=== PATIENT | female | born 1955 | race Caucasian/White ===

== ENCOUNTER 2016-05-09 16:24 | Inpatient (IN) | payer BC, OTHER ==
[~2016-05-09] VITALS: Ht 160 cm; Wt 68.0 kg
[~2016-05-09 16:24] MED LIST: ADVIN50050 INH; ALBINS INH; ALBU1AER9 INH; CHN5 PO; CLON1TAB3 PO; DIPH-437 PO; OXYC5TAB PO; PRED10TA PO; TIOTCAP INH
[2016-05-09] MEDS ORDERED: METHYLPREDNISOLONE 125 MG VIAL IV STA (16:53)
[2016-05-09] MEDS ORDERED: LEVAQUIN 750MG / 150ML D5W IV STA (16:53)
[2016-05-09] MEDS ORDERED: ALBUT/IPRATROP 3MG/0.5MG NEB 3 ML VIAL INH ONE (17:00)
--- NOTE | 2016-05-09 17:07 | EMERGENCY ROOM VISIT NOTE ---
History Report prepared by Rocio: Sydnee Toure Under the Supervision of: Dr. Lyndsey Espino M.D. First contact with patient: 16:35 Chief Complaint: RESPIRATORY PROBLEMS Stated Complaint: LACK OF BREATHING Nursing Triage Summary: Was at [facility] for checkup, was told she needs to be admitted. History of COPD, having increased difficulty breathing and SOB. 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 She notes shortness of breath, cough, and difficulty breathing. She typically wears 3L of O2 all the time. She states that when she sits still her O2 saturation is 98% but it drops into the 80s with any sort of exertion. 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. She was told to come to the ED for further evaluation. She rates her discomfort as a 10/10 in severity. She is currently taking 10mg of prednisone. 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 A total of 10 systems reviewed and were otherwise negative. Past Medical & Surgical Medical Problems: (1) COPD (chronic obstructive pulmonary disease) (2) Emphysematous bleb (3) History of tobacco use Family History Cancer Heart disease Social History Smoking Status: Former Smoker Marital Status: Housing Status: lives with significant other Current/Historical Medications Scheduled Albuterol (Proair Hfa), 2 PUFFS INH Q4HR PRN Cholecalciferol (Vitamin D3), Unknown Dose PO DAILY Diltiazem Hcl Ext Rel (Tiazac), 120 MG PO DAILY Escitalopram Oxalate (Lexapro), 20 MG PO DAILY Fluticasone Prop/Salmeterol (Advair Diskus 500/50 Mcg *), 1 PUFF INH BID Ipratropium-Albuterol (Duoneb), 3 ML INH TID Latanoprost (Xalatan 0.005% Oph Isabel), 1 DROPS OPB HS Magnesium Oxide (Mg Supplement (Magnesium), 250 MG PO DAILY Omeprazole (Prilosec), 20 MG PO DAILY Potassium (Potassium), 99 MG PO DAILY Prednisone Tab (Prednisone), 10 MG PO DAILY Sennosides-Docusate Sodium (Stool Softener), 100 MG PO BID Scheduled PRN Furosemide (Lasix), 20 MG PO DAILY PRN for SWELLING/WEIGHT GAIN Lorazepam (Ativan), 0.5-1 MG PO DAILY PRN for Anxiety Allergies Coded Allergies: No Known Allergies (Unverified , 05/09/16) Physical Exam Vital Signs Date Time Temp Pulse Resp B/P Pulse Ox O2 Delivery O2 Flow Rate FiO2 05/09/16 17:48 98 18 100/71 100 Nebulizer 05/09/16 17:10 96 22 98 Room Air 2.0 05/09/16 17:00 101 05/09/16 16:52 98 Nasal Cannula 3.0 05/09/16 16:51 98 Nasal Cannula 3.0 05/09/16 16:30 36.7 107 23 150/72 97 Room Air Physical Exam Vital signs reviewed. General: Well-appearing 60 year old female, in no significant distress. HEENT: No scleral icterus, PERRLA, neck supple. Atraumatic. Cardiovascular: Regular rate and rhythm, no extra sounds. Pulmonary: Minimal air movement bilaterally, shortness of breath with any talking, distant breath sounds bilaterally no crackles or wheeze appreciated. Dry cough, on N/C O2. Abdomen: Soft, nontender, nondistended, positive bowel sounds. Musculoskeletal: Atraumatic, no peripheral edema. Neurologic: Patient awake alert and oriented x 3, full strength in all 4 extremities. Cranial nerves 2 through 12 grossly intact. Skin: Warm, dry, no rash Medical Decision & Procedures ER Provider Diagnostic Interpretation: Radiology results as stated below per my review and radiologist interpretation: CHEST ONE VIEW PORTABLE HISTORY: cough, COPD exacerbation COMPARISON: Chest 05/15/2013. FINDINGS: The lungs are hyperexpanded with apical predominant emphysematous changes. Interstitial thickening at the lung bases is likely due to vascular crowding. This remains unchanged. No new focal lung consolidations. No evidence for pulmonary edema. The heart is normal in size. No pleural effusions. IMPRESSION: Emphysema. No acute process within the chest. Electronically signed by: Larry Handley M.D. 05/09/2016 5:37 PM Laboratory Results Test 05/09/16 17:00 05/09/16 17:20 05/09/16 17:29 Influenza Type A (RT-PCR) Neg for Influ A (NEG) Influenza Type B (RT-PCR) Neg for Influ B (NEG) Neutrophils % (Manual) 83.4 % Lymphocytes % (Manual) 12.2 % Monocytes % (Manual) 3.5 % Eosinophils % (Manual) 0.9 % Neutrophils # (Manual) 9.60 K/uL (1.4-6.5) Total Absolute Neutrophils 9.60 K/uL (1.4-6.5) Lymphocytes # (Manual) 1.40 K/uL (1.2-3.4) Total Absolute Lymphocytes 1.40 K/uL (1.2-3.4) Monocytes # (Manual) 0.40 K/uL (0.11-0.59) Eosinophils # (Manual) 0.10 K/uL (0-0.5) Red Blood Cell Morphology Unremarkable Prothrombin Time 10.4 SECONDS (9.0-12.0) Prothromb Time International Ratio 1.0 (0.9-1.1) Activated Partial Thromboplast Time 26.1 SECONDS (21.0-31.0) Partial Thromboplastin Ratio 1.0 Magnesium Level 2.2 mg/dl (1.8-2.4) Total Bilirubin 0.3 mg/dl (0.2-1) Direct Bilirubin < 0.1 mg/dl (0-0.2) Aspartate Amino Transf (AST/SGOT) 14 U/L (15-37) Alanine Aminotransferase (ALT/SGPT) 28 U/L (12-78) Alkaline Phosphatase 62 U/L (45-117) Total Creatine Kinase 63 U/L (26-192) Creatine Kinase MB 0.8 ng/ml (0.5-3.6) Creatine Kinase MB Ratio 1.3 (0-3.0) Total Protein 7.2 gm/dl (6.4-8.2) Albumin 4.0 gm/dl (3.4-5.0) Bedside Troponin I 0.000 ng/ml (0-0.045) Laboratory results per my review. Medications Administered Medications (Trade) Dose Ordered Sig/Sulema Route Start Time Stop Time Status Last Admin Dose Admin Albuterol/ Ipratropium (Duoneb) 12 ml ONE ONCE INH 05/09/16 17:00 05/09/16 17:01 DC 05/09/16 17:10 12 ML Methylprednisolone Sodium Succinate (Solu-Medrol IV) 125 mg NOW STAT IV 05/09/16 16:53 05/09/16 16:57 DC 05/09/16 17:47 125 MG Levofloxacin (Levaquin / D5W) 750 mg NOW STAT IV 05/09/16 16:53 05/09/16 16:58 DC 05/09/16 17:47 750 MG Oxycodone/ Acetaminophen (Percocet 5-325MG Tab) 1 tab Q4H PRN PO 05/09/16 18:45 05/23/16 18:44 05/09/16 22:29 1 TAB ECG Indication: SOB/dyspnea Rate (beats per minute): 91 Rhythm: normal sinus Findings: nonspecific-ST abn (diffusely), no ectopy ED Course 1645: Past medical records reviewed. The patient was evaluated in room B12A. A complete history and physical examination was performed. 1653: Levofloxacin 750 mg IV, Solu-Medrol 125 mg IV 1700: DuoNeb 12 ml INH 174: I spoke with Dr. Conde. We discussed the patients results and treatment plan. The patient will be evaluated by the [facility] for further management. 175: I reassessed the patient at this time. She is resting comfortably. I discussed the results and treatment plan with the patient. I answered all pertaining questions that she had. She expressed understanding and verbalized agreement. Medical Decision Differential diagnosis: Etiologies such as infections, reactive airway disease, pneumonia, pneumothorax , COPD, CHF, cardiac ischemia, pulmonary embolism, musculoskeletal, gastrointestinal, as well as others were entertained. This pt was evaluated and appeared to be in no distress. Lab work is negative, including flu swab. CXR is negative for acute process. Pt was given solu- medral and gave a duoneb treatment. She was given IV levaqun 750 mg. Pt was d/ w the hospitalist service for further management. Consults Time Called: 1741 Consulting Physician: Dr. Conde Returned Call: [address] Conde. We discussed the patients results and treatment plan. The patient will be evaluated by the [facility] for further management. Impression Primary Impression: COPD exacerbation Scribe Attestation The scribe's documentation has been prepared under my direction and personally reviewed by me in its entirety. I confirm that the note above accurately reflects all work, treatment, procedures, and medical decision making performed by me. Departure Information Dispostion Being Evaluated By Hospitalist Referrals No Doctor, Assigned (PCP) Patient Instructions A Signature Page, My [facility]
[2016-05-09 17:10] VITALS: PULSE 96; O2SAT 98
[2016-05-09] MEDS ORDERED: PRED10TA PO (17:17)
[2016-05-09] MEDS ORDERED: FURO-85 PO (17:18)
[2016-05-09] MEDS ORDERED: PRLSR20 PO (17:19)
[2016-05-09] MEDS ORDERED: IPRASOL4 INH (17:21)
[2016-05-09] MEDS ORDERED: POTA99TA PO (17:22)
[2016-05-09] MEDS ORDERED: LATA0.009 OPB (17:23)
[2016-05-09] MEDS ORDERED: MAGN250T8 PO (17:24)
[2016-05-09] MEDS ORDERED: CHOL1000 PO (17:25)
[2016-05-09] MEDS ORDERED: LORA-741 PO (17:26)
[2016-05-09] MEDS ORDERED: SENNTAB23 PO (17:31)
[2016-05-09] MEDS ORDERED: DILT120C68 PO (17:32)
[2016-05-09] MEDS ORDERED: ESCI1TAB10 PO (17:33)
[2016-05-09 17:37] LABS: MEAN CELL VOLUME 91.8 fL (80-100); MEAN CORPUSCULAR HEMOGLOBIN 29.2 pg (25-34); MEAN CORPUSCULAR HGB CONC 31.8 g/dl (32-36); MEAN PLATELET VOLUME 9.4 fL (7.4-10.4); PLATELET COUNT 298 K/uL (130-400); RED BLOOD COUNT 4.25 M/uL (4.2-5.4); WHITE BLOOD COUNT 11.51 K/uL (4.8-10.8)
--- NOTE | 2016-05-09 17:39 | DIAGNOSTIC IMAGING REPORT ---
CHEST ONE VIEW PORTABLE HISTORY: cough, COPD exacerbation COMPARISON: Chest 05/15/2013. FINDINGS: The lungs are hyperexpanded with apical predominant emphysematous changes. Interstitial thickening at the lung bases is likely due to vascular crowding. This remains unchanged. No new focal lung consolidations. No evidence for pulmonary edema. The heart is normal in size. No pleural effusions. IMPRESSION: Emphysema. No acute process within the chest. Electronically signed by: Larry Handley M.D. 05/09/2016 5:37 PM
[2016-05-09 17:57] LABS: ALT/SGPT 28 U/L (12-78); BLOOD UREA NITROGEN 15 mg/dl (7-18); BUN/CREATININE RATIO 23.8 (10-20); CALCIUM 9.2 mg/dl (8.5-10.1); CARBON DIOXIDE 31 mmol/L (21-32); CHLORIDE 101 mmol/L (98-107); CREATININE 0.64 mg/dl (0.60-1.20); GLUCOSE 104 mg/dl (70-99); MAGNESIUM 2.2 mg/dl (1.8-2.4); POTASSIUM 4.1 mmol/L (3.5-5.1); SODIUM 140 mmol/L (136-145)
[2016-05-09 17:59] LABS: COMPLETE YES; EOSINOPHIL % 0.9 %; LYMPHOCYTE % 12.2 %; NEUTROPHILS % 83.4 %
[2016-05-09 18:02] LABS: ALKALINE PHOSPHATASE 62 U/L (45-117); AST/SGOT 14 U/L (15-37); CKMB/CK RATIO 1.3 (0-3.0)
[2016-05-09] MEDS ORDERED: ACETAMINOPHEN 325 MG TAB PO PRN (18:45)
[2016-05-09] MEDS ORDERED: OXYCODONE/ACETAMINOPHEN 5-325 TAB PO PRN (18:45)
[2016-05-09] MEDS ORDERED: ONDANSETRON INJ 2 MG/ML 2 ML VIAL IV PRN (19:00)
[2016-05-09 19:06] LABS: INFLUENZA A PCR Neg for Influ A (NEG); INFLUENZA B PCR Neg for Influ B (NEG)
[2016-05-09] MEDS: ALBUT/IPRATROP 3MG/0.5MG NEB 3 ML VIAL INH SCH (20:00)
--- NOTE | 2016-05-09 20:07 | History and Physical ---
History & Physical H&P dictated #[id number].
[2016-05-09] MEDS ORDERED: ALBUT/IPRATROP 3MG/0.5MG NEB 3 ML VIAL INH PRN (20:45)
--- NOTE | 2016-05-09 20:56 | HISTORY & PHYSICAL EXAMINATION ---
DATE OF ADMISSION: 05/09/2016 CHIEF COMPLAINT: Shortness of breath. 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 She does have a history of COPD and wears 3 liters of oxygen all the time. She takes chronic prednisone. She declined having fever and chills. No nausea, vomiting or change in appetite. PAST MEDICAL HISTORY: COPD, kidney stones. PAST SURGICAL HISTORY: Tonsillectomy, hysterectomy, colonoscopy, fiberoptic bronchoscopy, lithotripsy. ALLERGIES: SHE LISTS AN INTOLERANCE TO CODEINE. SOCIAL HISTORY: The patient quit smoking in January 2013. She is and lives with her significant other. No alcohol or illicit substances. FAMILY HISTORY: Lung cancer. HOME MEDICATIONS: Include albuterol 2 puffs q. 4 p.r.n., vitamin D daily, diltiazem 120 mg daily, Lexapro 20 mg daily, Lasix 20 mg daily p.r.n. edema, DuoNeb 3 times daily, Xalatan eyedrops 1 drop at bedtime, Ativan 0.5 mg p.r.n., mag oxide p.o. daily, Prilosec 20 mg daily, potassium 99 mg daily, prednisone 10 mg daily, Advair 1 puff b.i.d., docusate sodium 100 mg b.i.d. REVIEW OF SYSTEMS: A 10-system review was performed, all of which were negative except what I put in the HPI. PHYSICAL EXAMINATION: VITAL SIGNS: Temperature 36.7, pulse 107, respiratory rate 18, blood pressure 100/71, pulse ox is 98% on 2-3 liters. GENERAL: The patient is awake, alert, and oriented x3 in mild distress secondary to shortness of breath. HEENT: TMs intact. No inflammation. Extraocular muscles intact. Pupils equal, round react to light and accommodation. Mucous membranes are moist. Throat is clear. NECK: No JVD or lymphadenopathy. LUNGS: Essentially showed decreased breath sounds at the bases, positive expiratory wheezing bilaterally. No rhonchus sounds. No E to A changes. HEART: Regular. Normal S1, S2, without murmurs, rubs or gallops. ABDOMEN: Soft, nontender, nondistended, positive bowel sounds. EXTREMITIES: No clubbing, cyanosis or edema. NEUROLOGIC: Cranial nerves II-XII are grossly intact and nonfocal. SKIN: Warm and dry without rash. PSYCHIATRIC: The patient is pleasant and cooperative. No signs of significant anxiety or depression. LABORATORY DATA: White count 11.51, hemoglobin 12.4, hematocrit 39.0, platelet count 298,000. Sodium 140, potassium 4.1, chloride 101, CO2 31, BUN 15, creatinine 0.64. Magnesium of 2.2, AST of 14, ALT of 28. Troponin of 0.000. Flu A and flu B were both negative. Chest x-ray was read as emphysema, no acute process within the chest. ASSESSMENT: The patient is assessed as chronic obstructive pulmonary disease exacerbation. PLAN: She was treated with initial dose of Solu-Medrol 125 mg IV in the ED and I will follow that with 60 mg IV q. 6 hours. She was also given levofloxacin 750 mg and I will continue that q. 24-hour. We will get pulmonology consult for further recommendations. She was given albuterol and Atrovent nebs, both scheduled and p.r.n. Her home medications are continued. DVT prophylaxis in the form of Lovenox 40 mg subQ and TEDs and SCDs. She was describing some musculoskeletal back pain, which I ordered pain control for that. Continue supplemental oxygen and titrate if needed.
[2016-05-09 21:19] LABS: PROTHROMBIN TIME (PATIENT) 10.4 SECONDS (9.0-12.0)
[2016-05-09] MEDS: LATANOPROST 0.005% OP SOLN 2.5 ML BTL OPB SCH (22:12)
[2016-05-09] MEDS: DOCUSATE SODIUM/SENNA 50/8.6MG TAB PO SCH (22:13)
[2016-05-09] MEDS: METHYLPREDNISOLONE IV 60 MG in SYRINGE 0 ML IV SCH (22:14)
[2016-05-10] VITALS (8 sets, daily range): BP systolic 127–138; BP diastolic 67–79; PULSE 84–118; TEMP 36–36.9; O2SAT 94–99; Ht 160 cm; Wt 68.0 kg
[2016-05-10] MEDS: LORAZEPAM 0.5 MG TAB PO PRN ×2 (00:53→15:39)
[2016-05-10 06:13] LABS: BASO % 0.1 %; BASO ABS # 0.01 K/uL (0-0.2); COMPLETE YES; HEMATOCRIT 37.1 % (37-47); IG% 0.8 %; LYMPH % 8.3 %; LYMPH ABS # 0.94 K/uL (1.2-3.4); MEAN CELL VOLUME 90.9 fL (80-100); MEAN CORPUSCULAR HEMOGLOBIN 29.4 pg (25-34); MEAN CORPUSCULAR HGB CONC 32.3 g/dl (32-36); MEAN PLATELET VOLUME 9.4 fL (7.4-10.4); MONO % 0.7 %; NEUT % 90.1 %; PLATELET COUNT 293 K/uL (130-400); RED BLOOD COUNT 4.08 M/uL (4.2-5.4); WHITE BLOOD COUNT 11.37 K/uL (4.8-10.8)
[2016-05-10] MEDS: METHYLPREDNISOLONE IV 60 MG in SYRINGE 0 ML IV SCH ×4 (06:36→23:10)
[2016-05-10 06:43] LABS: BUN/CREATININE RATIO 20.7 (10-20); CALCIUM 9.1 mg/dl (8.5-10.1); CREATININE 0.75 mg/dl (0.60-1.20); POTASSIUM 3.9 mmol/L (3.5-5.1)
[2016-05-10] MEDS: ALBUT/IPRATROP 3MG/0.5MG NEB 3 ML VIAL INH SCH ×4 (07:30→20:02)
[2016-05-10] MEDS: MAGNESIUM OXIDE 400 MG TAB PO SCH (08:35)
[2016-05-10] MEDS: PANTOprazole SOD 40 MG TAB PO SCH (08:35)
[2016-05-10] MEDS: DILTIAZEM HCL 120 MG EXT REL CAP PO SCH (08:35)
[2016-05-10] MEDS: DOCUSATE SODIUM/SENNA 50/8.6MG TAB PO SCH ×2 (08:35→20:20)
[2016-05-10] MEDS: ESCITALOPRAM OXALATE 20 MG TAB PO SCH (08:36)
[2016-05-10] MEDS: ENOXAPARIN 40 MG/0.4 ML SYR SQ SCH (08:36)
[2016-05-10] MEDS ORDERED: GLUCOSE 40% GEL 15 GM TUBE PO PRN (10:30)
[2016-05-10] MEDS ORDERED: GLUCAGON FOR INJ 1 MG VIAL SQ PRN (10:30)
[2016-05-10] MEDS ORDERED: GLUCOSE 10 TABS/TUBE PO PRN (10:30)
[2016-05-10] MEDS ORDERED: DEXTROSE 50% 50 ML SYR IV PRN (10:30)
--- NOTE | 2016-05-10 12:04 | Hospitalist Progress Note ---
Hospitalist Progress Note Date of Service May 10, 2016. Subjective Pt evaluation today including: conversation w/ patient, physical exam, chart review, lab review, review of studies, review of inpatient medication list Patient reports feeling 40% better this am. I explained that her sugars are likely going to be elevated while on the higher dose of steroids which may require Sub-q insulin coverage. No fever or chills. When she eats she feels bloated and she feels she is not able to take a deep breath. She reports that this occurs at home as well. Additional Comments: A 10 system review was performed and all were negative. Positives were placed in the subjective section. Objective Vital Signs Date Time Temp Pulse Resp B/P Pulse Ox O2 Delivery O2 Flow Rate FiO2 05/10/16 08:25 Nasal Cannula 2.0 05/10/16 08:11 36.0 84 15 127/68 99 Nasal Cannula 2.0 05/10/16 07:30 89 18 94 Nasal Cannula 2.0 05/10/16 04:08 36.9 99 22 138/79 Nasal Cannula 2.0 05/10/16 00:37 36.7 96 20 131/67 96 3.0 05/10/16 00:00 Nasal Cannula 05/09/16 19:52 36.7 118 22 118/62 100 2.0 05/09/16 17:48 98 18 100/71 100 Nebulizer 05/09/16 17:10 96 22 98 Room Air 2.0 05/09/16 17:00 101 05/09/16 16:52 98 Nasal Cannula 3.0 05/09/16 16:51 98 Nasal Cannula 3.0 05/09/16 16:30 36.7 107 23 150/72 97 Room Air Physical Exam Notes: GEN: Awake, alert, and oriented x 3. Not in acute distress HEENT: Tm's intact, no inflammation, EOMI, PERRLA, MMM Neck: Soft, supple Lungs: Better air movement than yesterday but still sounds tight and has + exp wheezes b/l. Heart: REG, nrl S1S2 without murmurs, rubs or gallops Abdomen: Soft, NT, ND, + BS EXT: No C/C/E NEURO: CN's II-XII grossly intact, non-focal Skin: warm, dry, no rashes PSYCH: pleasant, cooperative, no signs of significant anxiety or depression. Laboratory Results Last 24 Hours Test 05/09/16 17:00 05/09/16 17:20 05/09/16 17:29 05/10/16 05:37 Influenza Type A (RT-PCR) Neg for Influ A Influenza Type B (RT-PCR) Neg for Influ B White Blood Count 11.51 K/uL 11.37 K/uL Red Blood Count 4.25 M/uL 4.08 M/uL Hemoglobin 12.4 g/dL 12.0 g/dL Hematocrit 39.0 % 37.1 % Mean Corpuscular Volume 91.8 fL 90.9 fL Mean Corpuscular Hemoglobin 29.2 pg 29.4 pg Mean Corpuscular Hemoglobin Concent 31.8 g/dl 32.3 g/dl Platelet Count 298 K/uL 293 K/uL Mean Platelet Volume 9.4 fL 9.4 fL RDW Standard Deviation 48.0 fL 47.6 fL RDW Coefficient of Variation 14.2 % 14.2 % Neutrophils % (Manual) 83.4 % Lymphocytes % (Manual) 12.2 % Monocytes % (Manual) 3.5 % Eosinophils % (Manual) 0.9 % Neutrophils # (Manual) 9.60 K/uL Total Absolute Neutrophils 9.60 K/uL Lymphocytes # (Manual) 1.40 K/uL Total Absolute Lymphocytes 1.40 K/uL Monocytes # (Manual) 0.40 K/uL Eosinophils # (Manual) 0.10 K/uL Red Blood Cell Morphology Unremarkable Prothrombin Time 10.4 SECONDS Prothromb Time International Ratio 1.0 Activated Partial Thromboplast Time 26.1 SECONDS Partial Thromboplastin Ratio 1.0 Sodium Level 140 mmol/L 138 mmol/L Potassium Level 4.1 mmol/L 3.9 mmol/L Chloride Level 101 mmol/L 100 mmol/L Carbon Dioxide Level 31 mmol/L 26 mmol/L Anion Gap 8.0 mmol/L 12.0 mmol/L Blood Urea Nitrogen 15 mg/dl 16 mg/dl Creatinine 0.64 mg/dl 0.75 mg/dl Est Creatinine Clear Calc Drug Dose 84.4 ml/min 72.0 ml/min Estimated GFR () 110.8 99.0 Estimated GFR (Non- 95.6 85.4 BUN/Creatinine Ratio 23.8 20.7 Random Glucose 104 mg/dl 195 mg/dl Calcium Level 9.2 mg/dl 9.1 mg/dl Magnesium Level 2.2 mg/dl Total Bilirubin 0.3 mg/dl Direct Bilirubin < 0.1 mg/dl Aspartate Amino Transf (AST/SGOT) 14 U/L Alanine Aminotransferase (ALT/SGPT) 28 U/L Alkaline Phosphatase 62 U/L Total Creatine Kinase 63 U/L Creatine Kinase MB 0.8 ng/ml Creatine Kinase MB Ratio 1.3 Total Protein 7.2 gm/dl Albumin 4.0 gm/dl Bedside Troponin I 0.000 ng/ml Neutrophils (%) (Auto) 90.1 % Lymphocytes (%) (Auto) 8.3 % Monocytes (%) (Auto) 0.7 % Eosinophils (%) (Auto) 0.0 % Basophils (%) (Auto) 0.1 % Neutrophils # (Auto) 10.25 K/uL Lymphocytes # (Auto) 0.94 K/uL Monocytes # (Auto) 0.08 K/uL Eosinophils # (Auto) 0.00 K/uL Basophils # (Auto) 0.01 K/uL Immature Granulocyte % (Auto) 0.8 % Immature Granulocyte # (Auto) 0.09 K/uL Assessment and Plan 1) COPD exacerbation - improving, continue IV steroid, IV antibiotic, nebs. Pulmonary consulted. 2) Steroid induced hyperglycemia - checking sugars, follow sliding scale insulin 3) GERD - on Prilosec at home Protonix in house. 4) Anxiety - takes lexapro daily 5) Back pain - musculoskeletal - improved, pain control ordered. DVT prophylaxis sub-q lovenox, TEDs, SCDs. Continued [facility] stay due to: multiple IV medications needed Discharge planning: home
[2016-05-10] MEDS: INSULIN ASPART 100 UNITS/ML 3 ML PEN SC SCH ×3 (12:16→20:24)
--- NOTE | 2016-05-10 13:10 | PULMONARY CONSULTATION ---
DATE OF CONSULTATION: 05/10/2016 TIME: 10:40 a.m. HISTORY OF PRESENT ILLNESS: The patient was seen in room 408. She is a 60-year-old female with a longstanding history of severe emphysema and COPD. She has had breathing problems for longer than 20 years. She has had severely abnormal pulmonary function test. She is seen in the pulmonary office in [place]. Just yesterday she was there for a routine appointment but was in respiratory distress. She has been having severe problem since March. Her shortness of breath has been so severe that she is unable to eat unless she is in the standing position. Likewise oftentimes at night, she will kneel on the floor adjacent to her bed and lean over the bed and sleep that way for a few hours. She does this to gain mechanical advantage for better breathing. She has very little cough, although she started to cough a little bit since she has been getting more breathing treatments since admission. She has not expectorated any sputum. She is winded with any exertion at all. She cannot do any housework. She has not been up stairs in her home for a few years. She has been evaluated at [facility]. They were assessing her for possible lung reduction surgery. She was enrolled in the [employer] trial. She was categorized into the control group. There has been talk of either doing a lung reduction surgery or perhaps doing endobronchial coiling procedures or other procedures to have a similar effect. These products are not yet approved however by FDA for this. Since about , she has been doing poorly. She was admitted yesterday after having been in the office and seen Heydi James PA-C. She is feeling modestly better today. She is definitely breathing easier, she states. She will describe having severe posterior chest pain. This seems to be when she is having the most difficulty breathing. The patient takes nebulizer treatments in the form of DuoNeb 3 or 4 times per day. She is on long-term prednisone therapy, currently at 10 mg daily. She is on chronic oxygen therapy, believed to be on 3 liters. She is on Advair. In the past, she had been on Spiriva. She cannot remember why she stopped it but she thinks she just became frustrated at taking too many medicines. The patient has had bronchoscopy done by Dr. Rosa back in 2007 and 2012. Apparently, she had to be admitted for a couple days after the scope in 2012. In 2013, she had a lung abscess that was treated with catheter drainage and antibiotic therapy. PAST SURGICAL HISTORY: 1. Tonsillectomy. 2. Hysterectomy. 3. Tubal ligation. 4. Appendectomy. 5. Lithotripsy. PAST MEDICAL HISTORY: 1. Kidney stones. 2. Depression. 3. Skin cancer. 4. Tachycardia. 5. Lung problems as noted above. SOCIAL HISTORY: The patient smoked approximately 2 packs per day for 40 years. She quit in 2012. ETOH is none. ALLERGIES: LISTED ALLERGY TO CODEINE, SHE STATES SHE HAD SOME HALLUCINATIONS but she has had no problems with occasional use of cough syrup with codeine. REVIEW OF SYSTEMS: GENERAL: The patient's energy level is low. She is markedly limited in what she can do. She fatigues easily. NEUROLOGIC: No syncope or near syncope. OPHTHALMIC: She does have glaucoma and takes medicines for this. No acute ocular complaints. ENT: The patient snores loudly. She has some degree of nasal congestion. She has had chronic insomnia, for which she takes Tylenol PM. She has been doing this for years. She denies observed apneas. She denies difficulty sleeping when she falls asleep and she states she falls asleep readily with the p.m. medicine. She has chronic nasal dryness. CARDIAC: Chest pains posteriorly as noted above. History of tachycardia but no palpitations at present. She does sleep with 6 pillows underneath her to assist with her breathing. PULMONARY: As noted above. GASTROINTESTINAL: She has a history of reflux, for which she takes omeprazole b.i.d. She has chronic constipation. GENITOURINARY: Occasionally she has difficulty with urination. It seems to be better recently, she states. DERMATOLOGIC: No rashes. ENDOCRINE: No lymphadenopathy. MUSCULOSKELETAL: Only as noted above. FAMILY HISTORY: Strong family history of lung cancer. The patient's paternal grandfather, father, 3 paternal uncles, and a sister have all of lung cancer. Mother at age 84 from a perforated viscus. PHYSICAL EXAMINATION: GENERAL: The patient is a pleasant 60-year-old female who was cooperative, alert and oriented. She was able to lie back apparently much more than she had been previously. She did not appear in distress at rest. VITAL SIGNS: Temperature is 36 degrees. She has been afebrile since presentation. HEENT: Pupils were reactive to light. Nares were clear. Mouth exam showed a Mallampati grade 3 pharynx. There was no evidence of oral candidiasis. NECK: Palpation of the neck reveals no lymph nodes. CHEST: Inspection of the chest reveals an increased AP diameter. HEART: Heart rate currently is 84 per minute. The rhythm was regular. Blood pressure 127/68. LUNGS: Respiratory rate is 22 per minute. There is marked prolongation to the expiratory phase of respiration. No active wheezing was heard. She does have some degree of mild accessory muscle use, mainly in the strap muscle area. Saturations were 99% on 2 liter nasal cannula. ABDOMEN: Mildly obese. It was soft and nontender. Good bowel sounds were heard. EXTREMITIES: Showed no cyanosis, clubbing or edema. The patient on her left hand has nailbeds which are pulling apart from the nail itself and this occurs in fingers 1, 2, 3 and 4. This has been for a few years. The patient's chest x-ray showed hyperinflation with probable emphysematous changes in the upper lung fox bilaterally. LABORATORY DATA: CBC shows a white count of 11.37. Hemoglobin is 12. Platelets 293,000. Coags were normal. The electrolytes show sodium 138, potassium 3.9, chloride 100, bicarb 26. BUN 16 with a creatinine of 0.75. Blood sugar today was 195. Yesterday, it had been 104. Presumably this is related to steroids. Troponin was negative. Liver functions were normal. Flu test was negative. EKG showed an underlying normal sinus rhythm. Rate was 91. There are mild nonspecific ST and T-wave changes. IMPRESSION: 1. Respiratory failure -- with hypoxia. 2. Chronic obstructive pulmonary disease with exacerbation. 3. Emphysema with blebs in the upper lung fox. 4. Possible obstructive sleep apnea. 5. Gastroesophageal reflux disease. COMMENTS AND RECOMMENDATIONS: The patient obviously has very severe emphysema. Clinically, she is improved by history. I suspect the improvement is due to the IV steroids. Unfortunately, we are increasing her blood sugars. We will need to follow the sugars carefully. She is on levofloxacin. The Solu-Medrol is currently 60 mg IV q. 6 hours. She is receiving nebulizer treatments with DuoNeb q.i.d. and p.r.n. If she has tachyarrhythmias, would consider changing to Xopenex. She is taking diltiazem because of a history of tachycardia. I think it would be beneficial to give her a trial again of Spiriva. I would like to obtain a blood gas to assess not only her oxygenation but also her degree of carbon dioxide levels. The patient would be difficult to do a sleep study in the sleep lab because of her sleeping situation with her breathing. Her history, however, of chronic insomnia with excessively loud snoring would certainly suggest that. It is unknown if she would be tolerant of CPAP or BiPAP if indeed she did have severe sleep apnea. We will discuss this further with her as time goes on. Thank you very much for asking me to assist in her care.
[2016-05-10] MEDS: MoRPHine SULFATE 4 MG/ML 1 ML CARP\\VIAL IV PRN (15:40)
[2016-05-10] MEDS ORDERED: LEVOFLOXACIN / D5W 750 MG in PREMIXED IN D5W 150 ML IV SCH (17:00)
[2016-05-10] MEDS: LATANOPROST 0.005% OP SOLN 2.5 ML BTL OPB SCH (20:20)
[2016-05-11] VITALS (8 sets, daily range): BP systolic 125–136; BP diastolic 66–70; PULSE 97–111; TEMP 36.5–36.8; O2SAT 95–98
[2016-05-11] MEDS: METHYLPREDNISOLONE IV 60 MG in SYRINGE 0 ML IV SCH ×4 (04:58→22:26)
[2016-05-11] MEDS: ALBUT/IPRATROP 3MG/0.5MG NEB 3 ML VIAL INH SCH ×4 (06:59→19:03)
[2016-05-11] MEDS: TIOTROPIUM BROMIDE 5 PUFF/90 MCG INH INH SCH (08:15)
[2016-05-11] MEDS: ESCITALOPRAM OXALATE 20 MG TAB PO SCH (08:16)
[2016-05-11] MEDS: MAGNESIUM OXIDE 400 MG TAB PO SCH (08:16)
[2016-05-11] MEDS: PANTOprazole SOD 40 MG TAB PO SCH (08:17)
[2016-05-11] MEDS: DOCUSATE SODIUM/SENNA 50/8.6MG TAB PO SCH ×2 (08:17→20:31)
[2016-05-11] MEDS: DILTIAZEM HCL 120 MG EXT REL CAP PO SCH (08:18)
[2016-05-11] MEDS: ENOXAPARIN 40 MG/0.4 ML SYR SQ SCH (08:18)
[2016-05-11] MEDS: INSULIN ASPART 100 UNITS/ML 3 ML PEN SC SCH ×4 (08:22→20:37)
[2016-05-11 08:38] LABS: ARTERIAL BLD GAS O2 SATURATION 96.7 % (90-95); ARTERIAL BLOOD GAS HCO3 28 mmol/L (19-24); ARTERIAL BLOOD GAS PO2 86 mm/Hg (80-95); ARTERIAL BLOOD GAS pH 7.45 (7.35-7.45)
[2016-05-11 08:39] LABS: ALLEN TEST Positive (POS)
--- NOTE | 2016-05-11 11:52 | Hospitalist Progress Note ---
Hospitalist Progress Note Date of Service May 11, 2016. Subjective Pt evaluation today including: conversation w/ patient, physical exam, chart review, lab review, review of studies, conversation w/ software developer consultant (Pulm), review of inpatient medication list PO Intake: mateo po Pt feeling a bit better but still quite dyspneic just with conversation an even more so with ambulation to the bathroom. Has pains chronically that are worse in bilateral rib cage from accessory muscle use Constitutional: No fever Respiratory: + dyspnea on exertion, + shortness of breath, + wheezing Cardiovascular: + chest pain (rib cage as per hpi) Abdomen: No pain Skin: No rash All Other Systems: Reviewed and Negative Objective Vital Signs Date Time Temp Pulse Resp B/P Pulse Ox O2 Delivery O2 Flow Rate FiO2 05/11/16 08:50 Nasal Cannula 2.0 05/11/16 08:29 36.5 105 18 128/68 95 Room Air 05/11/16 06:59 98 20 98 Nasal Cannula 3.0 05/11/16 00:42 36.8 111 18 136/66 97 2.0 05/11/16 00:00 Nasal Cannula 05/10/16 20:02 100 22 98 Nasal Cannula 2.0 05/10/16 16:00 Nasal Cannula 05/10/16 15:51 118 30 95 Nasal Cannula 2.0 05/10/16 15:15 36.9 108 17 137/70 98 2.0 Physical Exam General Appearance: WD/WN, + mild distress (dyspneic, tachypneic at rest with conversation) Eyes: normal inspection, sclerae normal ENT: pharynx normal (no thrush) Neck: trachea midline Respiratory/Chest: + respiratory distress (mild), + decreased breath sounds ( diffuse), + accessory muscle use (some at times), + wheezing (diffuse) Cardiovascular: no edema, no gallop, no murmur, + tachycardia (mild, regular rhythm) Abdomen: normal bowel sounds, non tender, soft Extremities: non-tender, normal inspection, no calf tenderness, + swelling ( trace edema legs) Neurologic/Psychiatric: alert, normal mood/affect Skin: normal color, warm/dry, no rash Laboratory Results Last 24 Hours Test 05/10/16 12:15 05/10/16 16:20 05/10/16 20:15 05/11/16 08:14 Bedside Glucose 199 mg/dl 172 mg/dl 158 mg/dl 200 mg/dl Test 05/11/16 08:23 Arterial Blood pH 7.45 Arterial Blood Partial Pressure CO2 42 mmHg Arterial Blood Partial Pressure O2 86 mm/Hg Arterial Blood HCO3 28 mmol/L Arterial Blood Oxygen Saturation 96.7 % Arterial Blood Base Excess 4.0 mEq/L Arterial Blood Gas Delivery 2 Liters Ricardo Test Positive Assessment and Plan Pt is a 60 yo female with a h/o severe COPD, chronic respiratory failure on home O2, chronic back pain, HTN, tachycardia, LE edema, anxiety, GERD, here with COPD exacerbation. 1) COPD exacerbation - improving, continue IV steroid, IV Levaquin but change to po today, afebrile, nebs. Pulmonary consulted. -is being considered for clinical trial at [facility] for lung surgery or procedure 2) Steroid induced hyperglycemia - checking sugars, follow sliding scale insulin 3) GERD - on Prilosec at home Protonix in house. 4) Anxiety - takes lexapro daily 5) Back pain - musculoskeletal - improved, pain control ordered. DVT prophylaxis sub-q lovenox, TEDs, SCDs.
--- NOTE | 2016-05-11 15:36 | Pulmonology Progress Note ---
Pulmonary Progress Note Date of Service May 11, 2016. Attending Cable Subjective Feeling somewhat improved today now comfortable at rest yet remains markedly dyspneic with minimal exertion. Back pain is controlled. No chest pain. Was unable to cough prior but now able to support cough with sputum production. Appetite is diminished without n/v/d or abdominal pain. No fevers or chills. Objective 60-yo female hospital day # 3 admitted with exacerbation severe end-stage COPD. PMHx includes: 2-3 LPM O2 and steroid (10mg prednisone) dependent severe COPD ( FEV1: 25%), CAD, GERD. Former tobacco use (80+ pack year) with continued second hand exposure. Patient admitted 03/09/17 through the [facility] ER with 1-month history of progressive dyspnea and intermittent hypoxia. In the ER WBC: 11.51. Hgb/Hct: 12.4/39, plts 298. AB.45/42/86/28. CXR without infiltrate and consistent with severe emphysema. Influenza: negative. She was treated with levofloxacin, IV methylprednisone ([id number]), Q6-hour Duo-Nebs and Spiriva with improvement. Today: - O2: 95-98% on 2-3LPM - HD stable, afebrile, intermittent tachycardia Physical Exam: Constitutional: Well developed female lying in hospital bed. No acute distress Head: + facial symmetry, nasal cannula in place Mouth: moist mucous membranes. no erythema or plaques Respiratory: Very distant breath sounds throughout. End-expiratory wheeze auscultated anterior right-mid lung field. NO rhonchi or rales. Intermittent dry cough CV: Diminished S1, S2. No murmur appreciated. Rapid rate. Warm and perfused peripherally MSK/Extremities: Moving and developed symmetrically without significant peripheral edema. Neurologic: A&O. Good data recall. Appropriate affect. Assessment & Plan 66-yo female with severe end-stage COPD/Emphysema presents to the hospital with acute exacerbation. Overall she is improved but remains dyspneic with minimal exertion. Baseline she is very limited and we spent time today discussing her end-stage disease. She is at and actually past the point in her lung function where lung reduction surgery, valve placement and even lung transplant have been discussed through [facility] and she was encouraged to very seriously consider if she wants to pursue these options vs no-treatment such that that further discussion regarding her lung disease, expectations, pulmonary rehab, and symptom management can be addressed appropriately (as an outpatient). 1. Continue IV steroid 60Q6 through tomorrow and will continue to address ability to wean 2. Continue full course levofloxacin, Duo-nebs and Spiriva -tachycardia improving and compensational but consider adjusting levalbuterol-ipratropium if continues tomorrow 3. No significant changes in regimen at this time, she is improving slowly but not yet ready for de-escalation today. Will re-evaluate tomorrow with further recommendations. Data Medications: Current Inpatient Medications Medications (Trade) Dose Ordered Sig/Sulema Route Start Time Stop Time Status Last Admin Dose Admin Methylprednisolone Sodium Succinate/ Syringe (Solu-Medrol IV/ Syringe) 0.96 ml @ 1.5 mls/min Q6H IV 05/09/16 23:00 06/08/16 22:59 05/11/16 12:22 1.5 MLS/MIN Albuterol/ Ipratropium (Duoneb) 3 ml QIDR INH 05/09/16 20:00 06/08/16 19:59 05/11/16 15:17 3 ML Acetaminophen (Tylenol Tab) 650 mg Q6H PRN PO 05/09/16 18:45 06/08/16 18:44 Oxycodone/ Acetaminophen (Percocet 5-325MG Tab) 1 tab Q4H PRN PO 05/09/16 18:45 05/23/16 18:44 05/09/16 22:29 1 TAB Morphine Sulfate (MoRPHine SULFATE INJ) 3 mg Q3H PRN IV 05/09/16 18:45 05/23/16 18:44 05/10/16 15:40 3 MG Diltiazem HCl (TIAzac CAP) 120 mg DAILY PO 05/10/16 08:00 06/09/16 08:59 05/11/16 08:18 120 MG Escitalopram Oxalate (Lexapro Tab) 20 mg DAILY PO 05/10/16 08:00 06/09/16 08:59 05/11/16 08:16 20 MG Latanoprost (Xalatan Oph Soln) 1 drops HS OPB 05/09/16 21:00 06/08/16 20:59 05/10/16 20:20 1 DROPS Senna/Docusate Sodium (Senokot S Tab) 1 tab BID PO 05/09/16 20:00 06/08/16 19:59 05/11/16 08:17 1 TAB Magnesium Oxide (Mag-Ox Tab) 400 mg DAILY PO 05/10/16 08:00 06/09/16 07:59 05/11/16 08:16 400 MG Pantoprazole Sodium (Protonix Tab) 40 mg QAM PO 05/10/16 08:00 06/09/16 07:59 05/11/16 08:17 40 MG Enoxaparin Sodium (Lovenox Inj) 40 mg QAM SQ 05/10/16 08:00 06/09/16 07:59 05/11/16 08:18 40 MG Lorazepam (Ativan Tab) 0.5 mg Q6H PRN PO 05/09/16 19:00 06/08/16 18:59 05/10/16 15:39 0.5 MG Ondansetron HCl (Zofran Inj) 4 mg Q6H PRN IV 05/09/16 19:00 06/08/16 18:59 Albuterol/ Ipratropium (Duoneb) 3 ml Q2H PRN INH 05/09/16 20:45 06/08/16 20:44 Insulin Aspart (novoLOG ASPART) SLIDING SCALE G... ACHS SC 05/10/16 11:00 06/09/16 10:59 05/11/16 12:24 2 UNITS Glucose (Glucose 40% Gel) 15-30 GRAMS 15 GRAMS... UD PRN PO 05/10/16 10:30 06/09/16 10:29 Glucose (Glucose Chew Tab) 4-8 Tablets 4 Tabl... UD PRN PO 05/10/16 10:30 06/09/16 10:29 Dextrose (Dextrose 50% 50ML Syringe) 25-50ML OF 50% DW IV FOR... UD PRN IV 05/10/16 10:30 06/09/16 10:29 Glucagon (Glucagon Inj) 1 mg UD PRN SQ 05/10/16 10:30 06/09/16 10:29 Tiotropium Lydia (Spiriva Handihaler Inhaler) 1 puff QAM INH 05/11/16 08:00 06/10/16 07:59 05/11/16 08:15 1 PUFF Furosemide (Lasix tab) 20 mg QAM PO 05/12/16 08:00 06/11/16 07:59 Levofloxacin (Levaquin Tab) 750 mg DAILY@1600 PO 05/11/16 16:00 05/16/16 15:59 Vital Signs: Date Time Temp Pulse Resp B/P Pulse Ox O2 Delivery O2 Flow Rate FiO2 05/11/16 11:08 97 18 98 Nasal Cannula 3.0 05/11/16 08:50 Nasal Cannula 2.0 05/11/16 08:29 36.5 105 18 128/68 95 Room Air 05/11/16 06:59 98 20 98 Nasal Cannula 3.0 05/11/16 00:42 36.8 111 18 136/66 97 2.0 05/11/16 00:00 Nasal Cannula 05/10/16 20:02 100 22 98 Nasal Cannula 2.0 05/10/16 16:00 Nasal Cannula 05/10/16 15:51 118 30 95 Nasal Cannula 2.0 Laboratory Results: Last 24 Hours Test 05/10/16 16:20 05/10/16 20:15 05/11/16 08:14 05/11/16 08:23 Bedside Glucose 172 mg/dl 158 mg/dl 200 mg/dl Arterial Blood pH 7.45 Arterial Blood Partial Pressure CO2 42 mmHg Arterial Blood Partial Pressure O2 86 mm/Hg Arterial Blood HCO3 28 mmol/L Arterial Blood Oxygen Saturation 96.7 % Arterial Blood Base Excess 4.0 mEq/L Arterial Blood Gas Delivery 2 Liters Ricardo Test Positive Test 05/11/16 12:16 Bedside Glucose 215 mg/dl
[2016-05-11] MEDS: LEVOFLOXACIN 750 MG TAB PO SCH (17:39)
[2016-05-11] MEDS: MoRPHine SULFATE 4 MG/ML 1 ML CARP\\VIAL IV PRN (20:30)
[2016-05-11] MEDS: LATANOPROST 0.005% OP SOLN 2.5 ML BTL OPB SCH (20:39)
[2016-05-11] MEDS: LORAZEPAM 0.5 MG TAB PO PRN (22:26)
[2016-05-12] VITALS (10 sets, daily range): BP systolic 130–143; BP diastolic 70–79; PULSE 86–99; TEMP 36.6–36.8; O2SAT 95–99
[2016-05-12] MEDS: METHYLPREDNISOLONE IV 60 MG in SYRINGE 0 ML IV SCH ×2 (04:44→11:46)
[2016-05-12] MEDS: LORAZEPAM 0.5 MG TAB PO PRN ×4 (05:00→23:43)
[2016-05-12] MEDS: ALBUT/IPRATROP 3MG/0.5MG NEB 3 ML VIAL INH SCH ×5 (05:07→19:39)
[2016-05-12 06:10] LABS: COMPLETE YES; HEMATOCRIT 36.3 % (37-47); IG% 0.7 %; LYMPH % 5.4 %; LYMPH ABS # 1.03 K/uL (1.2-3.4); MEAN CELL VOLUME 91.7 fL (80-100); MEAN CORPUSCULAR HEMOGLOBIN 29.5 pg (25-34); MEAN CORPUSCULAR HGB CONC 32.2 g/dl (32-36); MEAN PLATELET VOLUME 9.6 fL (7.4-10.4); MONO % 3.7 %; NEUT % 90.2 %; PLATELET COUNT 317 K/uL (130-400); RED BLOOD COUNT 3.96 M/uL (4.2-5.4); WHITE BLOOD COUNT 19.09 K/uL (4.8-10.8)
[2016-05-12 06:42] LABS: ALT/SGPT 28 U/L (12-78); AST/SGOT 11 U/L (15-37); BUN/CREATININE RATIO 30.3 (10-20); CALCIUM 8.8 mg/dl (8.5-10.1); CARBON DIOXIDE 27 mmol/L (21-32); CHLORIDE 98 mmol/L (98-107); CREATININE 0.81 mg/dl (0.60-1.20); GLUCOSE 159 mg/dl (70-99); MAGNESIUM 2.9 mg/dl (1.8-2.4); POTASSIUM 4.1 mmol/L (3.5-5.1); SODIUM 136 mmol/L (136-145)
[2016-05-12 06:45] LABS: ALKALINE PHOSPHATASE 55 U/L (45-117)
[2016-05-12 06:58] LABS: BLOOD UREA NITROGEN 25 mg/dl (7-18)
[2016-05-12] MEDS: MoRPHine SULFATE 4 MG/ML 1 ML CARP\\VIAL IV PRN ×2 (08:19→17:07)
[2016-05-12] MEDS: ESCITALOPRAM OXALATE 20 MG TAB PO SCH (08:23)
[2016-05-12] MEDS: DOCUSATE SODIUM/SENNA 50/8.6MG TAB PO SCH ×2 (08:23→21:12)
[2016-05-12] MEDS: FUROSEMIDE 20 MG TAB PO SCH (08:23)
[2016-05-12] MEDS: PANTOprazole SOD 40 MG TAB PO SCH ×2 (08:23→21:12)
[2016-05-12] MEDS: DILTIAZEM HCL 120 MG EXT REL CAP PO SCH (08:23)
[2016-05-12] MEDS: TIOTROPIUM BROMIDE 5 PUFF/90 MCG INH INH SCH (08:24)
[2016-05-12] MEDS: MAGNESIUM OXIDE 400 MG TAB PO SCH (08:24)
[2016-05-12] MEDS: ENOXAPARIN 40 MG/0.4 ML SYR SQ SCH (08:25)
--- NOTE | 2016-05-12 08:25 | DIAGNOSTIC IMAGING REPORT ---
TWO VIEW CHEST CLINICAL HISTORY: COPD. Dyspnea. FINDINGS: PA and lateral chest radiographs are compared to study dated 05/09/2016 and correlated with chest CT dated 07/10/2014. The cardiomediastinal silhouette is unremarkable. Advanced emphysema and chronic interstitial thickening is similar to previous. There is no airspace consolidation or pleural effusion There is no pneumothorax. The skeletal structures are osteopenic. The bony thorax appears intact. Calcific tendinopathy is noted in the right shoulder. IMPRESSION: Advanced emphysema with no acute cardiopulmonary abnormality. Electronically signed by: Oh Garrett M.D. 05/12/2016 8:23 AM Dictated Date/Time: 05/12/2016 8:22 AM
[2016-05-12] MEDS: INSULIN ASPART 100 UNITS/ML 3 ML PEN SC SCH ×4 (08:30→21:17)
--- NOTE | 2016-05-12 14:19 | PULMONARY PROGRESS NOTE ---
DATE: 05/12/2016 Time is 1:45 p.m. SUBJECTIVE: The patient describes having 2 episodes of acute shortness of breath that scared her a lot. One episode occurred last evening. She had gone to the bathroom with nursing assistance. When she got back from the bathroom, which is only a couple of steps, she was really tight and short of breath. She was getting panicky. Ultimately, she was relieved with a nebulizer treatment. This morning once again similar episode but not quite as bad occurred. On this occasion, however, she was not going to the bathroom at that point in time. She seems to be not as good as when I saw her 2 days ago. She complains of feeling bloated. She is moving her bowels. She states she is just not very hungry from feeling bloated. OBJECTIVE: GENERAL: The patient looked anxious and she looked somewhat short of breath. She is afebrile and has been afebrile. EARS, NOSE, THROAT: Unremarkable. VITAL SIGNS: Heart rate is 88 per minute. The rhythm was regular. Blood pressure 143/73. LUNGS: Lung fox again are severely diminished in terms of their intensity. There was prolongation to the expiratory phase of respiration. ABDOMEN: Fairly soft. Bowel sounds were heard. There was no tenderness. EXTREMITIES: Showed no edema. LABORATORY DATA: Blood gas done yesterday on 2-liter nasal cannula shows a pH of 7.45 with a pCO2 of 42 and a pO2 of 86. Electrolytes show sodium of 136, potassium 4.1, chloride 98, bicarb 27. BUN was 25 with a creatinine of 0.81. Blood sugar was 233 at 11:35 a.m. The patient did express concern over whether she was getting the right medicines to bring her blood sugars down. I tried to reassure her that this is a common situation when people are on high dose steroids and that it is dealt with regularly. CBC shows a white count of 19.09. This reflects a significant increase from 2 days ago when she was 11.37. This may be due to steroids. Hemoglobin is 11.7. Platelets are 317,000. IMPRESSIONS: 1. Acute respiratory failure with hypoxia. 2. Chronic obstructive pulmonary disease exacerbation. 3. Emphysema with blebs. 4. Gastroesophageal reflux disease. 5. Possible obstructive sleep apnea. COMMENTS AND RECOMMENDATIONS: The patient does not seem as good as she did 2 days ago. She did have a chest x-ray yesterday that again shows obstructive lung disease with bullous changes in the upper lung fox. I explained to her that we probably would want to decrease the steroids a little bit because of the blood sugars. She is on Levaquin as well as Spiriva, pantoprazole, enoxaparin and DuoNeb. Her heart rate is slower than it had been a couple of days ago and I think that may reflect some improvement. I would continue otherwise the same for now.
[2016-05-12] MEDS: LEVOFLOXACIN 750 MG TAB PO SCH (17:00)
[2016-05-12] MEDS: METHYLPREDNISOLONE IV 40 MG in SYRINGE 0 ML IV SCH ×2 (17:00→22:22)
[2016-05-12] MEDS ORDERED: BISACODYL 5 MG TABEC PO ONE (18:52)
--- NOTE | 2016-05-12 19:00 | Hospitalist Progress Note ---
Hospitalist Progress Note Date of Service May 12, 2016. Subjective Pt evaluation today including: conversation w/ patient, physical exam, chart review, lab review, review of studies, review of inpatient medication list PO Intake: mateo po Voiding: no voiding problems Pt had some frightening episodes of SOB that required tripodding and accessory neck muscles which are now sore. Breathing better now. She did not have a BM today and feels like her abd is bloated after eating, no abd pain. Constitutional: No fever ENT: + problem reported (neck pain) Respiratory: + dyspnea on exertion, + shortness of breath Cardiovascular: No chest pain Abdomen: + problem reported (bloating), No pain All Other Systems: Reviewed and Negative Objective Vital Signs Date Time Temp Pulse Resp B/P Pulse Ox O2 Delivery O2 Flow Rate FiO2 05/12/16 16:25 97 Nasal Cannula 3.0 05/12/16 15:11 36.8 86 18 130/73 96 Nasal Cannula 2.0 05/12/16 13:12 88 18 99 Nasal Cannula 3.0 05/12/16 08:29 36.7 87 16 143/73 97 Nasal Cannula 2.0 05/12/16 08:05 Nasal Cannula 3.0 05/12/16 07:08 96 18 96 Nasal Cannula 3.0 05/12/16 05:07 99 18 95 Nasal Cannula 3.0 05/12/16 04:25 95 Nasal Cannula 3.0 05/12/16 00:22 36.6 88 18 142/70 96 Nasal Cannula 2.0 05/12/16 00:00 Nasal Cannula 3.0 05/11/16 19:04 99 18 98 Nasal Cannula 3.0 Physical Exam General Appearance: WD/WN, no apparent distress Eyes: normal inspection, sclerae normal ENT: hearing grossly normal Neck: + pertinent finding (mild TTP over posterior lateral neck) Respiratory/Chest: no respiratory distress, no accessory muscle use, + decreased breath sounds (throughout, mild exp wheezes) Cardiovascular: regular rate, rhythm, no edema, no gallop, no murmur Abdomen: normal bowel sounds, non tender, soft Extremities: normal inspection, no pedal edema, no calf tenderness Neurologic/Psychiatric: alert, normal mood/affect, oriented x 3 Skin: normal color, warm/dry, no rash Laboratory Results Last 24 Hours Test 05/12/16 05:30 05/12/16 11:35 05/12/16 16:37 White Blood Count 19.09 K/uL Red Blood Count 3.96 M/uL Hemoglobin 11.7 g/dL Hematocrit 36.3 % Mean Corpuscular Volume 91.7 fL Mean Corpuscular Hemoglobin 29.5 pg Mean Corpuscular Hemoglobin Concent 32.2 g/dl Platelet Count 317 K/uL Mean Platelet Volume 9.6 fL Neutrophils (%) (Auto) 90.2 % Lymphocytes (%) (Auto) 5.4 % Monocytes (%) (Auto) 3.7 % Eosinophils (%) (Auto) 0.0 % Basophils (%) (Auto) 0.0 % Neutrophils # (Auto) 17.21 K/uL Lymphocytes # (Auto) 1.03 K/uL Monocytes # (Auto) 0.71 K/uL Eosinophils # (Auto) 0.00 K/uL Basophils # (Auto) 0.00 K/uL RDW Standard Deviation 48.9 fL RDW Coefficient of Variation 14.5 % Immature Granulocyte % (Auto) 0.7 % Immature Granulocyte # (Auto) 0.14 K/uL Sodium Level 136 mmol/L Potassium Level 4.1 mmol/L Chloride Level 98 mmol/L Carbon Dioxide Level 27 mmol/L Anion Gap 11.0 mmol/L Blood Urea Nitrogen 25 mg/dl Creatinine 0.81 mg/dl Est Creatinine Clear Calc Drug Dose 66.7 ml/min Estimated GFR () 90.2 Estimated GFR (Non- 77.8 BUN/Creatinine Ratio 30.3 Random Glucose 159 mg/dl Calcium Level 8.8 mg/dl Magnesium Level 2.9 mg/dl Total Bilirubin 0.4 mg/dl Direct Bilirubin < 0.1 mg/dl Aspartate Amino Transf (AST/SGOT) 11 U/L Alanine Aminotransferase (ALT/SGPT) 28 U/L Alkaline Phosphatase 55 U/L Total Protein 7.0 gm/dl Albumin 3.9 gm/dl Bedside Glucose 233 mg/dl 161 mg/dl Assessment and Plan Pt is a 60 yo female with a h/o severe end-stage COPD, chronic respiratory failure on home O2, chronic back pain, HTN, tachycardia, LE edema, anxiety, GERD , here with COPD exacerbation. 1) COPD exacerbation - improving, continue IV steroid and taper down, IV Levaquin initially, then changed to po, afebrile, nebs. Pulmonary consulted. -[place] [facility] [place] but as per Pulm notes, may not be a candidate for anything 2) Steroid induced hyperglycemia - checking sugars, follow sliding scale insulin and lower correction factor today 3) GERD - on Prilosec at home Protonix in house. 4) Anxiety - takes lexapro daily 5) Back pain, neck pain - musculoskeletal from accessory muscle use -lorazepam prn DVT prophylaxis sub-q lovenox, TEDs, SCDs.
[2016-05-12] MEDS: LATANOPROST 0.005% OP SOLN 2.5 ML BTL OPB SCH (21:12)
[2016-05-13] VITALS (9 sets, daily range): BP systolic 128–148; BP diastolic 57–75; PULSE 81–101; TEMP 36.9–37; O2SAT 94–98
[2016-05-13] MEDS: METHYLPREDNISOLONE IV 40 MG in SYRINGE 0 ML IV SCH ×4 (05:40→22:42)
[2016-05-13 05:54] LABS: COMPLETE YES; HEMATOCRIT 34.3 % (37-47); IG% 0.9 %; LYMPH % 6.2 %; LYMPH ABS # 0.85 K/uL (1.2-3.4); MEAN CELL VOLUME 91.5 fL (80-100); MEAN CORPUSCULAR HEMOGLOBIN 29.1 pg (25-34); MEAN CORPUSCULAR HGB CONC 31.8 g/dl (32-36); MEAN PLATELET VOLUME 9.3 fL (7.4-10.4); MONO % 4.8 %; NEUT % 88.1 %; PLATELET COUNT 262 K/uL (130-400); RED BLOOD COUNT 3.75 M/uL (4.2-5.4); WHITE BLOOD COUNT 13.74 K/uL (4.8-10.8)
[2016-05-13 06:36] LABS: BUN/CREATININE RATIO 40.2 (10-20); CALCIUM 8.5 mg/dl (8.5-10.1); CREATININE 0.64 mg/dl (0.60-1.20); MAGNESIUM 2.9 mg/dl (1.8-2.4)
[2016-05-13] MEDS: ALBUT/IPRATROP 3MG/0.5MG NEB 3 ML VIAL INH SCH ×4 (07:11→19:00)
[2016-05-13] MEDS: ESCITALOPRAM OXALATE 20 MG TAB PO SCH (09:00)
[2016-05-13] MEDS: TIOTROPIUM BROMIDE 5 PUFF/90 MCG INH INH SCH (09:00)
[2016-05-13] MEDS: MAGNESIUM OXIDE 400 MG TAB PO SCH (09:00)
[2016-05-13] MEDS: FUROSEMIDE 20 MG TAB PO SCH (09:00)
[2016-05-13] MEDS: DILTIAZEM HCL 120 MG EXT REL CAP PO SCH (09:01)
[2016-05-13] MEDS: ENOXAPARIN 40 MG/0.4 ML SYR SQ SCH (09:01)
[2016-05-13] MEDS: DOCUSATE SODIUM/SENNA 50/8.6MG TAB PO SCH ×2 (09:01→22:42)
[2016-05-13] MEDS: PANTOprazole SOD 40 MG TAB PO SCH ×2 (09:01→22:42)
[2016-05-13] MEDS: INSULIN ASPART 100 UNITS/ML 3 ML PEN SC SCH ×4 (09:06→22:49)
[2016-05-13] MEDS: LORAZEPAM 0.5 MG TAB PO PRN ×2 (10:21→18:04)
--- NOTE | 2016-05-13 11:51 | Hospitalist Progress Note ---
Hospitalist Progress Note Date of Service May 13, 2016. Subjective Pt evaluation today including: conversation w/ patient, physical exam, chart review, lab review, review of studies, review of inpatient medication list PO Intake: okbut still minimal appetite, early satiety Feeling better today, still significant HERNANDEZ w/ ambulation to BR but is currently napping lying almost flat and feels fine Constitutional: No fever ENT: + problem reported (neck pain much improved) Respiratory: + dyspnea on exertion Cardiovascular: No chest pain Abdomen: + problem reported (early satiety, but does feel improved since starting PPI), No pain, No vomiting All Other Systems: Reviewed and Negative Objective Vital Signs Date Time Temp Pulse Resp B/P Pulse Ox O2 Delivery O2 Flow Rate FiO2 05/13/16 11:27 101 16 97 Nasal Cannula 2.0 05/13/16 10:58 Nasal Cannula 2.0 05/13/16 07:45 37.0 93 16 148/75 95 Nasal Cannula 2.0 05/13/16 07:13 94 16 98 Nasal Cannula 3.0 05/13/16 00:00 96 Nasal Cannula 3.0 05/12/16 23:35 36.6 92 20 137/79 96 Nasal Cannula 3.0 05/12/16 19:39 89 18 96 Nasal Cannula 2.0 05/12/16 16:25 97 Nasal Cannula 3.0 05/12/16 15:11 36.8 86 18 130/73 96 Nasal Cannula 2.0 05/12/16 13:12 88 18 99 Nasal Cannula 3.0 Physical Exam General Appearance: WD/WN, no apparent distress Eyes: normal inspection, sclerae normal Neck: trachea midline Respiratory/Chest: no respiratory distress, no accessory muscle use, + decreased breath sounds (but improved from yesterday, no wheezing today, no rales or rhonchi) Cardiovascular: regular rate, rhythm, no edema, no gallop, no murmur Abdomen: normal bowel sounds, non tender, soft (and obese) Extremities: non-tender, normal inspection, no pedal edema, no calf tenderness Neurologic/Psychiatric: alert, normal mood/affect, oriented x 3 Skin: normal color, warm/dry Laboratory Results Last 24 Hours Test 05/12/16 16:37 05/12/16 20:20 05/13/16 05:16 05/13/16 07:22 Bedside Glucose 161 mg/dl 203 mg/dl 175 mg/dl White Blood Count 13.74 K/uL Red Blood Count 3.75 M/uL Hemoglobin 10.9 g/dL Hematocrit 34.3 % Mean Corpuscular Volume 91.5 fL Mean Corpuscular Hemoglobin 29.1 pg Mean Corpuscular Hemoglobin Concent 31.8 g/dl Platelet Count 262 K/uL Mean Platelet Volume 9.3 fL Neutrophils (%) (Auto) 88.1 % Lymphocytes (%) (Auto) 6.2 % Monocytes (%) (Auto) 4.8 % Eosinophils (%) (Auto) 0.0 % Basophils (%) (Auto) 0.0 % Neutrophils # (Auto) 12.10 K/uL Lymphocytes # (Auto) 0.85 K/uL Monocytes # (Auto) 0.66 K/uL Eosinophils # (Auto) 0.00 K/uL Basophils # (Auto) 0.00 K/uL RDW Standard Deviation 48.0 fL RDW Coefficient of Variation 14.3 % Immature Granulocyte % (Auto) 0.9 % Immature Granulocyte # (Auto) 0.13 K/uL Sodium Level 138 mmol/L Potassium Level 4.0 mmol/L Chloride Level 99 mmol/L Carbon Dioxide Level 32 mmol/L Anion Gap 7.0 mmol/L Blood Urea Nitrogen 26 mg/dl Creatinine 0.64 mg/dl Est Creatinine Clear Calc Drug Dose 84.4 ml/min Estimated GFR () 110.8 Estimated GFR (Non- 95.6 BUN/Creatinine Ratio 40.2 Random Glucose 185 mg/dl Calcium Level 8.5 mg/dl Magnesium Level 2.9 mg/dl Assessment and Plan Pt is a 60 yo female with a h/o severe end-stage COPD, chronic respiratory failure on home O2, chronic back pain, HTN, tachycardia, LE edema, anxiety, GERD , here with COPD exacerbation. 1) COPD exacerbation - improving more today, continue IV steroid and taper down , IV Levaquin initially, then changed to po, afebrile, nebs. Pulmonary consulted. -is being considered for clinical [place] [facility] [place] or procedure but as per Pulm notes, may not be a candidate for anything -consider BiPAP trial at night while inpatient, consider [facility] referral for at home use-will d/w Pulm 2) Steroid induced hyperglycemia -improving with lowered dose of Solu Medrol - checking sugars, follow sliding scale insulin and lower correction factor 3) GERD/Abd fullness/early satiety -could be from steroids causing gastritis? Improving now with increasing Protonix to bid 4) Anxiety - takes lexapro daily 5) Back pain, neck pain - musculoskeletal from accessory muscle use--> much improved -lorazepam prn DVT prophylaxis sub-q lovenox, TEDs, SCDs.
[2016-05-13] MEDS: MoRPHine SULFATE 4 MG/ML 1 ML CARP\\VIAL IV PRN (12:40)
--- NOTE | 2016-05-13 13:00 | PULMONARY PROGRESS NOTE ---
DATE: 05/13/2016 DATE: 05/13/2016. TIME: 12:15 p.m. SUBJECTIVE: The patient feels a little better. About 4 times today she has expectorated some yellow sputum. She feels better with that. She is still not exerting herself to any significant degree. She feels like she rested much better yesterday. That likely is related to the fact that she has had some morphine. OBJECTIVE: GENERAL: The patient was sleeping when I came into the room. She awakened readily. She was oriented. She was in no distress. Temperature is 37. EARS, NOSE, THROAT: Exam is unchanged. As noted previously, she has a fairly large neck. HEART: Heart rate is 100 per minute, it was regular. Blood pressure 148/75. CHEST: Respiratory rate was 20 breaths per minute. She has severely diminished breath sounds as prior. Faint rhonchi were heard. She did cough after taking deep breaths. Saturations were 97% on 2 liters. ABDOMEN: Obese. EXTREMITIES: Showed no edema. IMPRESSIONS: 1. Respiratory failure with hypoxia. 2. Chronic obstructive pulmonary disease exacerbation. 3. Severe emphysema with blebs. 4. Gastroesophageal reflux disease. 5. Possible obstructive sleep apnea. COMMENTS: The patient seems fairly stable, but very limited in doing any exertion at all. I believe the methylprednisolone can be further decreased. She is currently getting 40 mg IV q. 6 hours and will cut that to q. 12 hours. Would continue with her other treatments. In light of the fact she was improved today, I did not offer her a BiPAP trial. I suspect she will be very claustrophobic and have difficulty with it, though I cannot say that with certainty. If and when BiPAP might be tried I would use low pressures in light of her emphysema. For now, will simply carry on.
[2016-05-13 13:01] LABS: ESTIMATED AVERAGE GLUCOSE 131 mg/dl; HA1C FLAG Normal (Normal)
[2016-05-13] MEDS: LEVOFLOXACIN 750 MG TAB PO SCH (18:05)
[2016-05-13] MEDS: LATANOPROST 0.005% OP SOLN 2.5 ML BTL OPB SCH (22:43)
[2016-05-14] VITALS (9 sets, daily range): BP systolic 134–151; BP diastolic 69–84; PULSE 71–92; TEMP 36.9; O2SAT 97–98
[2016-05-14] MEDS: METHYLPREDNISOLONE IV 40 MG in SYRINGE 0 ML IV SCH ×2 (05:04→18:11)
[2016-05-14 07:03] LABS: BASO % 0.1 %; BASO ABS # 0.01 K/uL (0-0.2); COMPLETE YES; LYMPH % 7.4 %; LYMPH ABS # 1.07 K/uL (1.2-3.4); MEAN CELL VOLUME 90.7 fL (80-100); MEAN CORPUSCULAR HEMOGLOBIN 28.9 pg (25-34); MEAN CORPUSCULAR HGB CONC 31.8 g/dl (32-36); MEAN PLATELET VOLUME 9.6 fL (7.4-10.4); MONO % 4.5 %; PLATELET COUNT 300 K/uL (130-400); RED BLOOD COUNT 4.19 M/uL (4.2-5.4); WHITE BLOOD COUNT 14.37 K/uL (4.8-10.8)
[2016-05-14 07:30] LABS: BUN/CREATININE RATIO 29.9 (10-20); CALCIUM 8.6 mg/dl (8.5-10.1); CREATININE 0.88 mg/dl (0.60-1.20); MAGNESIUM 2.7 mg/dl (1.8-2.4); POTASSIUM 3.8 mmol/L (3.5-5.1)
[2016-05-14] MEDS: ALBUT/IPRATROP 3MG/0.5MG NEB 3 ML VIAL INH SCH ×4 (07:38→20:15)
[2016-05-14] MEDS ORDERED: BISACODYL 5 MG TABEC PO SCH (08:00)
[2016-05-14] MEDS: TIOTROPIUM BROMIDE 5 PUFF/90 MCG INH INH SCH (08:28)
[2016-05-14] MEDS: FUROSEMIDE 20 MG TAB PO SCH (08:29)
[2016-05-14] MEDS: DOCUSATE SODIUM/SENNA 50/8.6MG TAB PO SCH ×2 (08:29→22:05)
[2016-05-14] MEDS: ESCITALOPRAM OXALATE 20 MG TAB PO SCH (08:29)
[2016-05-14] MEDS: PANTOprazole SOD 40 MG TAB PO SCH ×2 (08:30→22:05)
[2016-05-14] MEDS: ENOXAPARIN 40 MG/0.4 ML SYR SQ SCH (08:30)
[2016-05-14] MEDS: MAGNESIUM OXIDE 400 MG TAB PO SCH (08:30)
[2016-05-14] MEDS: DILTIAZEM HCL 120 MG EXT REL CAP PO SCH (08:30)
[2016-05-14] MEDS: INSULIN ASPART 100 UNITS/ML 3 ML PEN SC SCH ×4 (08:32→22:07)
[2016-05-14] MEDS ORDERED: SODIUM CHLORIDE 0.65% NA SOLN 45 ML (OCEAN) ONE (08:44)
[2016-05-14] MEDS ORDERED: COUGH DROP (SUGAR FREE) LOZ 24 LOZ/1 BOX ONE (08:44)
--- NOTE | 2016-05-14 08:54 | Hospitalist Progress Note ---
Hospitalist Progress Note Date of Service May 14, 2016. Subjective Pt evaluation today including: conversation w/ patient, physical exam, chart review, lab review, review of studies, conversation w/ wellness consultant, review of inpatient medication list PO Intake: mateo po Voiding: no voiding problems Pt coughed up a dime sized amount of bright red blood x 2 this AM. Nose is dy and bloody on inside and she is sniffling it up. Fan blowing in room and NC in place. Otherwise breathing is stable from yesterday , still quite HERNANDEZ with ambulation to BR. Moving bowels, no N/V, but still has some sharp pains in right mid abdomen that improve with stretching out her body. Abd pain worse with using abd muscles to sit upright. Overall feels improved. Afebrile Constitutional: No fever Respiratory: + dyspnea on exertion Cardiovascular: No chest pain Abdomen: + pain, + see HPI All Other Systems: Reviewed and Negative Objective Vital Signs Date Time Temp Pulse Resp B/P Pulse Ox O2 Delivery O2 Flow Rate FiO2 05/14/16 07:40 84 18 98 Nasal Cannula 2.0 05/14/16 07:22 36.9 85 20 151/84 98 Nasal Cannula 2.0 05/14/16 00:00 Nasal Cannula 3.0 05/13/16 23:10 36.9 81 16 128/57 97 Nasal Cannula 2.0 Humidified Oxygen 05/13/16 19:00 98 18 97 Nasal Cannula 2.0 05/13/16 16:05 97 Nasal Cannula 3.0 05/13/16 15:23 88 16 98 Nasal Cannula 2.0 05/13/16 15:04 36.9 91 16 131/67 94 Nasal Cannula 2.0 05/13/16 11:27 101 16 97 Nasal Cannula 2.0 05/13/16 10:58 Nasal Cannula 2.0 Physical Exam General Appearance: WD/WN, no apparent distress Eyes: normal inspection, sclerae normal ENT: hearing grossly normal, pharynx normal, + nasal drainage (small amount crusted blood in nares bilat) Neck: supple Respiratory/Chest: lungs clear, no respiratory distress, no accessory muscle use, + decreased breath sounds (diminished throughout) Cardiovascular: regular rate, rhythm, no edema, no gallop, no murmur Abdomen: normal bowel sounds, soft, + tenderness (at right mid abdomen with worsening with half sit-up, no guarding, no tenderness anywhere else other than that small spot, no rebound tenderness, no hernia) Extremities: normal range of motion, normal inspection, no pedal edema, no calf tenderness Neurologic/Psychiatric: alert, normal mood/affect, oriented x 3 Skin: normal color, warm/dry, no rash Laboratory Results Last 24 Hours Test 05/13/16 11:27 05/13/16 16:30 05/13/16 20:09 05/14/16 05:49 Bedside Glucose 195 mg/dl 228 mg/dl 225 mg/dl White Blood Count 14.37 K/uL Red Blood Count 4.19 M/uL Hemoglobin 12.1 g/dL Hematocrit 38.0 % Mean Corpuscular Volume 90.7 fL Mean Corpuscular Hemoglobin 28.9 pg Mean Corpuscular Hemoglobin Concent 31.8 g/dl Platelet Count 300 K/uL Mean Platelet Volume 9.6 fL Neutrophils (%) (Auto) 86.0 % Lymphocytes (%) (Auto) 7.4 % Monocytes (%) (Auto) 4.5 % Eosinophils (%) (Auto) 0.0 % Basophils (%) (Auto) 0.1 % Neutrophils # (Auto) 12.36 K/uL Lymphocytes # (Auto) 1.07 K/uL Monocytes # (Auto) 0.64 K/uL Eosinophils # (Auto) 0.00 K/uL Basophils # (Auto) 0.01 K/uL RDW Standard Deviation 46.9 fL RDW Coefficient of Variation 14.2 % Immature Granulocyte % (Auto) 2.0 % Immature Granulocyte # (Auto) 0.29 K/uL Sodium Level 140 mmol/L Potassium Level 3.8 mmol/L Chloride Level 99 mmol/L Carbon Dioxide Level 29 mmol/L Anion Gap 12.0 mmol/L Blood Urea Nitrogen 26 mg/dl Creatinine 0.88 mg/dl Est Creatinine Clear Calc Drug Dose 61.3 ml/min Estimated GFR () 81.6 Estimated GFR (Non- 70.4 BUN/Creatinine Ratio 29.9 Random Glucose 216 mg/dl Calcium Level 8.6 mg/dl Magnesium Level 2.7 mg/dl Test 05/14/16 08:05 Bedside Glucose 182 mg/dl Assessment and Plan Pt is a 60 yo female with a h/o severe end-stage bullous COPD, chronic respiratory failure on home O2, chronic back pain, HTN, tachycardia, LE edema, anxiety, GERD, here with COPD exacerbation. 1) COPD exacerbation - stable today, ABG does not qualify her for BiPAP at home most likely - continue IV steroid and taper down to 40mg IV q12 received- IV Levaquin initially, then changed to po Levaquin now day 6-complete 7 day course -continue nebs, SPiriva -needs sleep study as outpt to see if qualifies for CPAP or BiPAP as per Pulm however caution, use low pressures due to bullae -Pulmonary consulted and appreciated-f/u with them as outpt after discharge -is being considered for clinical trial at [facility] [place] for lung surgery or procedure but as per Pulm notes, may not be a candidate for anything? -hemoptysis from epistaxis--> stop blowing fan in room, add humidification to NC 2) Steroid induced hyperglycemia -improving with lowered dose of Solu Medrol - checking sugars, follow sliding scale insulin 3) GERD/Abd fullness/early satiety -could be from steroids causing gastritis? Improving now with increasing Protonix to bid -Also with most likely abd muscle strain from coughing--> check KUB but most likely not intraabdominal process 4) Anxiety - takes lexapro daily 5) Back pain, neck pain - musculoskeletal from accessory muscle use--> much improved -lorazepam prn DVT prophylaxis sub-q lovenox, TEDs, SCDs. Dispo- FULL CODE PT/OT evals Plan for discharge to home with home health when ready
--- NOTE | 2016-05-14 10:10 | DIAGNOSTIC IMAGING REPORT ---
ABDOMEN 2 VIEWS HISTORY: Generalized abdominal pain. COMPARISON: Abdominal series 02/04/2013. FINDINGS: There is no pneumoperitoneum or pneumatosis. The bowel gas pattern is unremarkable. No evidence for bowel obstruction. The lung bases are clear. There are few stones within the lower pole of the right kidney with the largest measuring 3 mm. No ureteral or left renal calculi identified. Round calcifications in the left deep pelvis remain stable and likely represent phleboliths. IMPRESSION: 1. Right-sided nephrolithiasis. No ureteral calculi. 2. No evidence for bowel obstruction. Electronically signed by: Larry Handley M.D. 05/14/2016 10:08 AM Dictated Date/Time: 05/14/2016 10:05 AM
--- NOTE | 2016-05-14 12:25 | PULMONARY PROGRESS NOTE ---
DATE: 05/14/2016 SUBJECTIVE: The patient's breathing is perhaps a little bit better. She had a reasonably good night. She did cough up a little blood. She thought it was from her nose. She was not sure that she had had a nosebleed. She has had blood before that she thought may have been from her nose. She is complaining of abdominal pain. This would be in the mid to left abdominal region. It seems to be worse with movement. Denies any bowel problems. OBJECTIVE: GENERAL: The patient appeared fairly comfortable from a breathing perspective. VITAL SIGNS: She was afebrile. Heart rate was 72 beats per minute. Blood pressure 151/84. LUNGS: Moore again reveal was severely diminished breath sounds. There was prolongation to the expiratory phase of respiration. No active wheezing was heard. ABDOMEN: Bowel sounds were present. There was tenderness to palpation in the mid and upper abdominal region. Oxygen saturation was 98% on 2 liters. EXTREMITIES: Showed no edema. IMPRESSIONS: 1. Respiratory failure with hypoxia. 2. Chronic obstructive pulmonary disease exacerbation. 3. Emphysema with blebs. 4. Gastroesophageal reflux disease. 5. Possible obstructive sleep apnea. COMMENTS AND RECOMMENDATIONS: I spoke with the patient about CPAP and BiPAP. She has never had these before. She apparently is aware of what they are. I encouraged her to get a sleep study when she is feeling somewhat better. If she had significant sleep apnea, she would be a good candidate for CPAP or BiPAP. Dr. Kenney had ordered an abdominal x-ray this morning because of her abdominal pain. Right-sided nephrolithiasis was noted. There was no evidence for bowel obstruction. The patient is still on methylprednisolone. She is at 40 mg IV q. 12 hours. I have no objection to soon changing over to oral prednisone assuming she stays stable. She did cough up a little blood. Examination of the nasal passages showed some blood on both the right and left sides. This may well be the origin for the hemoptysis. She indicates she has had this before. It is possible she may need some cauterization. An ENT evaluation might ultimately be necessary and appropriate. She currently is on prophylactic Lovenox. As noted, ultimately a sleep study would be advised. Dr. Rollins will be seeing the patient as of tomorrow.
[2016-05-14] MEDS: LEVOFLOXACIN 750 MG TAB PO SCH (18:12)
[2016-05-14] MEDS: LORAZEPAM 0.5 MG TAB PO PRN (18:17)
[2016-05-14] MEDS: LATANOPROST 0.005% OP SOLN 2.5 ML BTL OPB SCH (22:05)
[2016-05-15 01:02] VITALS: O2SAT 97
[2016-05-15] MEDS: METHYLPREDNISOLONE IV 40 MG in SYRINGE 0 ML IV SCH (05:47)
[2016-05-15 06:18] LABS: HEMATOCRIT 36.5 % (37-47); MEAN CELL VOLUME 91.5 fL (80-100); MEAN CORPUSCULAR HEMOGLOBIN 28.6 pg (25-34); MEAN CORPUSCULAR HGB CONC 31.2 g/dl (32-36); MEAN PLATELET VOLUME 9.5 fL (7.4-10.4); PLATELET COUNT 268 K/uL (130-400); RED BLOOD COUNT 3.99 M/uL (4.2-5.4); WHITE BLOOD COUNT 12.29 K/uL (4.8-10.8)
[2016-05-15 06:53] LABS: BUN/CREATININE RATIO 31.5 (10-20); CALCIUM 8.5 mg/dl (8.5-10.1); CREATININE 0.7 mg/dl (0.60-1.20); POTASSIUM 4.1 mmol/L (3.5-5.1)
[2016-05-15 07:13] VITALS: PULSE 86; O2SAT 98
[2016-05-15] MEDS: ALBUT/IPRATROP 3MG/0.5MG NEB 3 ML VIAL INH SCH ×3 (07:13→15:34)
[2016-05-15 08:29] VITALS: BP 138/78; PULSE 84; TEMP 36.5; O2SAT 97
[2016-05-15] MEDS: DOCUSATE SODIUM/SENNA 50/8.6MG TAB PO SCH (08:53)
[2016-05-15] MEDS: PANTOprazole SOD 40 MG TAB PO SCH (08:53)
[2016-05-15] MEDS: ESCITALOPRAM OXALATE 20 MG TAB PO SCH (08:53)
[2016-05-15] MEDS: MAGNESIUM OXIDE 400 MG TAB PO SCH (08:53)
[2016-05-15] MEDS: FUROSEMIDE 20 MG TAB PO SCH (08:53)
[2016-05-15] MEDS: TIOTROPIUM BROMIDE 5 PUFF/90 MCG INH INH SCH (08:53)
[2016-05-15] MEDS: DILTIAZEM HCL 120 MG EXT REL CAP PO SCH (08:54)
[2016-05-15] MEDS: ENOXAPARIN 40 MG/0.4 ML SYR SQ SCH (08:54)
[2016-05-15] MEDS: INSULIN ASPART 100 UNITS/ML 3 ML PEN SC SCH ×2 (08:57→12:29)
--- NOTE | 2016-05-15 09:56 | Medical Student: [facility] ---
Med Student Progress Note Date of Service May 15, 2016. Subjective Pt evaluation today including: conversation w/ patient, physical exam, chart review, lab review, review of studies Pain: mild abdominal pain PO Intake: tolerating po diet Voiding: no voiding problems No acute events overnight. Patient reports no coughing up blood since yesterday. Says her breathing is doing well and continues to improve. Pt. does report feeling very tired and having difficulty focusing, despite saying she sleeps a great deal. She reports an episode of low 02 sat when being checked early this morning, but denies any accompanying symptoms. Reports that she tends to run about 95% on home oxygen and begins to feel short of breath if she falls below that level. Reports having a bowel movement yesterday which made her feel much better. No other symptoms to report. Review of Systems Constitutional: + see HPI, No fever Respiratory: + cough, + dyspnea on exertion, + hemoptysis, + shortness of breath, + wheezing Cardiac: No edema, No orthopnea Abdomen: + pain Objective Vital Signs Date Time Temp Pulse Resp B/P Pulse Ox O2 Delivery O2 Flow Rate FiO2 05/15/16 08:29 36.5 84 16 138/78 97 Nasal Cannula 2.0 05/15/16 07:13 86 16 98 Nasal Cannula 2.0 05/15/16 01:02 97 Nasal Cannula 3.0 05/14/16 23:58 36.9 91 20 136/70 97 Nasal Cannula 4.0 05/14/16 20:15 80 18 98 Nasal Cannula 2.0 05/14/16 16:49 97 Nasal Cannula 3.0 05/14/16 15:20 76 18 98 Nasal Cannula 2.0 05/14/16 15:06 36.9 92 16 134/70 97 Nasal Cannula 2.0 05/14/16 11:40 Nasal Cannula 2.0 05/14/16 11:23 71 18 98 Nasal Cannula 2.0 05/14/16 10:36 91 97 Physical Exam General Appearance: no apparent distress, + obese Eyes: bilateral eyes normal inspection ENT: hearing grossly normal Neck: supple, no JVD Respiratory/Chest: chest non-tender, normal breath sounds, no respiratory distress, no accessory muscle use, + wheezing (mild end-expiratory wheezes in lower fxo bilaterally) Cardiovascular: regular rate, rhythm, no edema, no gallop, no JVD, no murmur Abdomen: normal bowel sounds, soft, + tenderness (mild, generalized tenderness to palpation) Extremities: non-tender, normal inspection, no pedal edema Neurologic/Psychiatric: alert, normal mood/affect, oriented x 3 Skin: normal color, warm/dry, no rash Laboratory Results Last 24 Hours Test 05/14/16 11:22 05/14/16 16:15 05/14/16 20:12 05/15/16 05:40 Bedside Glucose 254 mg/dl 279 mg/dl 210 mg/dl White Blood Count 12.29 K/uL Red Blood Count 3.99 M/uL Hemoglobin 11.4 g/dL Hematocrit 36.5 % Mean Corpuscular Volume 91.5 fL Mean Corpuscular Hemoglobin 28.6 pg Mean Corpuscular Hemoglobin Concent 31.2 g/dl RDW Standard Deviation 47.7 fL RDW Coefficient of Variation 14.2 % Platelet Count 268 K/uL Mean Platelet Volume 9.5 fL Sodium Level 141 mmol/L Potassium Level 4.1 mmol/L Chloride Level 100 mmol/L Carbon Dioxide Level 33 mmol/L Anion Gap 8.0 mmol/L Blood Urea Nitrogen 22 mg/dl Creatinine 0.70 mg/dl Est Creatinine Clear Calc Drug Dose 77.1 ml/min Estimated GFR () 107.6 Estimated GFR (Non- 92.9 BUN/Creatinine Ratio 31.5 Random Glucose 165 mg/dl Calcium Level 8.5 mg/dl Test 05/15/16 08:01 Bedside Glucose 178 mg/dl Medications Current Inpatient Medications Medications (Trade) Dose Ordered Sig/Sulema Route Start Time Stop Time Status Last Admin Dose Admin Albuterol/ Ipratropium (Duoneb) 3 ml QIDR INH 05/09/16 20:00 06/08/16 19:59 05/15/16 07:13 3 ML Acetaminophen (Tylenol Tab) 650 mg Q6H PRN PO 05/09/16 18:45 06/08/16 18:44 Oxycodone/ Acetaminophen (Percocet 5-325MG Tab) 1 tab Q4H PRN PO 05/09/16 18:45 05/23/16 18:44 05/09/16 22:29 1 TAB Morphine Sulfate (MoRPHine SULFATE INJ) 3 mg Q3H PRN IV 05/09/16 18:45 05/23/16 18:44 05/13/16 12:40 3 MG Diltiazem HCl (TIAzac CAP) 120 mg DAILY PO 05/10/16 08:00 06/09/16 08:59 05/15/16 08:54 120 MG Escitalopram Oxalate (Lexapro Tab) 20 mg DAILY PO 05/10/16 08:00 06/09/16 08:59 05/15/16 08:53 20 MG Latanoprost (Xalatan Oph Soln) 1 drops HS OPB 05/09/16 21:00 06/08/16 20:59 05/14/16 22:05 1 DROPS Senna/Docusate Sodium (Senokot S Tab) 1 tab BID PO 05/09/16 20:00 06/08/16 19:59 05/15/16 08:53 1 TAB Magnesium Oxide (Mag-Ox Tab) 400 mg DAILY PO 05/10/16 08:00 06/09/16 07:59 05/15/16 08:53 400 MG Enoxaparin Sodium (Lovenox Inj) 40 mg QAM SQ 05/10/16 08:00 06/09/16 07:59 05/15/16 08:54 40 MG Lorazepam (Ativan Tab) 0.5 mg Q6H PRN PO 05/09/16 19:00 06/08/16 18:59 05/14/16 18:17 0.5 MG Ondansetron HCl (Zofran Inj) 4 mg Q6H PRN IV 05/09/16 19:00 06/08/16 18:59 Albuterol/ Ipratropium (Duoneb) 3 ml Q2H PRN INH 05/09/16 20:45 06/08/16 20:44 Insulin Aspart (novoLOG ASPART) SLIDING SCALE G... ACHS SC 05/10/16 11:00 06/09/16 10:59 05/15/16 08:57 1 UNITS Glucose (Glucose 40% Gel) 15-30 GRAMS 15 GRAMS... UD PRN PO 05/10/16 10:30 06/09/16 10:29 Glucose (Glucose Chew Tab) 4-8 Tablets 4 Tabl... UD PRN PO 05/10/16 10:30 06/09/16 10:29 Dextrose (Dextrose 50% 50ML Syringe) 25-50ML OF 50% DW IV FOR... UD PRN IV 05/10/16 10:30 06/09/16 10:29 Glucagon (Glucagon Inj) 1 mg UD PRN SQ 05/10/16 10:30 06/09/16 10:29 Tiotropium [place] (Spiriva Handihaler Inhaler) 1 puff QAM INH 05/11/16 08:00 06/10/16 07:59 05/15/16 08:53 1 PUFF Furosemide (Lasix tab) 20 mg QAM PO 05/12/16 08:00 06/11/16 07:59 05/15/16 08:53 20 MG Levofloxacin (Levaquin Tab) 750 mg DAILY@1600 PO 05/11/16 16:00 05/16/16 15:59 05/14/16 18:12 750 MG Pantoprazole Sodium (Protonix Tab) 40 mg BID PO 05/12/16 20:00 06/11/16 19:59 05/15/16 08:53 40 MG Bisacodyl (Dulcolax Tab) 5 mg Q2D@0800 PO 05/14/16 08:00 06/13/16 07:59 05/14/16 08:29 5 MG Prednisone (PredniSONE TAB) 40 mg DAILY PO 05/16/16 08:00 06/15/16 07:59 Assessment and Plan Assessment and Plan: 1) COPD exacerbation - Breathing and SOB much improved since admission - Continue to taper IV steroids to appropriate levels for outpatient prednisone. - Continue inhaled tiotropium bromide daily and duoneb prn for SOB - Also being evaluated for possible DAVINA. However, does not qualify for home CPAP given current ABG oxygen levels. - Pulmonary would like to perform an outpatient sleep study 2) Steroid induced hyperglycemia - improving with taper of steroids - Continue sliding scale and regular monitoring of blood glucose 3) GERD/Abd fullness/early satiety/abd pain - Ongoing of 3 months duration - Continue pantoprazole for GERD - May have a musculoskeletal component from coughing - suggest anti-inflammatories prn for abd pain 4) Anxiety - well-controlled - Continue lexapro 5) Back pain, neck pain - no acute complaints - Continue to assess pain and offer analgesics prn DVT prophylaxis sub-q lovenox, TEDs, SCDs. Dispo- FULL CODE PT/OT evals Plan for discharge to home with home health when ready Continued [facility] stay due to: multiple IV medications needed Discharge planning: home
[2016-05-15 11:16] VITALS: PULSE 72; O2SAT 98
[2016-05-15] MEDS ORDERED: PRED10TA PO (11:25)
--- NOTE | 2016-05-15 11:32 | Discharge Instructions ---
Discharge Instructions Admission Reason for Admission: Copd Exacerbation Discharge Discharge Diagnosis / Problem: COPD exacerbation Discharge Goals Goal(s): Improve function Activity Recommendations Activity Limitations: as noted below Exercise/Sports Limitations: as tolerated . Instructions / Follow-Up Instructions / Follow-Up You have been treated in the hospital for a severe COPD exacerbation. It appears that your breathing is now back to your baseline Your blood sugars had been running high likely due to the amount of IV steroids you were receiving in the hospital. This will likely improve now that we have taken you off the IV steroids and put you on oral steroids. Please resume home oxygen of 3 L at all times. Please continue to do your nebulizer treatments every 6 hours for at least one week. You may also take treatments every 2 hours as needed on top of the scheduled dose every 6 hours. You have been put on a steroid taper: -40 mg daily for one week -30 mg daily for 1 week -20 mg daily for 1 week -then resume regular dose of 10 mg daily It is important for you to follow up with your primary care physician within one week Return to the emergency department if you have any of the following symptoms: -Fever of 102F or greater -Chest pain -Worsening Shortness of breath Current Hospital Diet Patient's current hospital diet: Regular Diet Discharge Diet Recommended Diet: Regular Diet Pending Studies Studies pending at discharge: no Laboratory Results Hemoglobin A1c Test 05/13/16 05:16 Range/Units Estimated Average Glucose 131 mg/dl Hemoglobin A1c 6.2 H 4.5-5.6 % Medical Emergencies . Who to Call and When: Medical Emergencies: If at any time you feel your situation is an emergency, please call 911 immediately. . Non-Emergent Contact Non-Emergency issues call your: Primary Care Provider . . "Provider Documentation" section prepared by Hayley Starks. VTE Core Measure Inpt VTE Proph given/why not?: Enoxaparin (Lovenox)SHOAIB, Tru. Jelani, SCD's
--- NOTE | 2016-05-15 11:37 | Pulmonology Progress Note ---
Pulmonary Progress Note Date of Service May 15, 2016. Attending Dr. Miguel Rollins Subjective Patient initiated have dyspnea on exertion but back to her baseline able to ambulate 15-20 feet without notable shortness of breath. She denies active sputum, fever, chills or pleurisy Objective 60-yo female hospital day # 3 admitted with exacerbation severe end-stage COPD. PMHx includes: COPD (FEV:25%, 2-3 LPM O2 and steroid (10mg prednisone), CAD, GERD. Former tobacco use (80+ pack year) with continued second hand exposure. Today: - O2: 97-98% on 2-3LPM, reviewed and stable/within normal limits Physical Exam: Respiratory: Decreased breath sounds bilaterally greatest at the bases bilaterally with minimal expiratory wheezing CV: No lower extremity swelling bilaterally, S1-S2 regular rate and rhythm Neurologic: Cranial nerves II through XII grossly intact: Strength 5 out of 5 bilaterally Assessment & Plan 66-yo female with severe end-stage COPD/Emphysema presents to the hospital with acute exacerbation. Overall she is improved but remains dyspneic with minimal exertion. Baseline she is very limited and we spent time today discussing her end-stage disease. She is at and actually past the point in her lung function where lung reduction surgery, valve placement and even lung transplant have been discussed through [facility] and she was encouraged to very seriously consider if she wants to pursue these options vs no-treatment such that that further discussion regarding her lung disease, expectations, pulmonary rehab, and symptom management can be addressed appropriately (as an outpatient). 1. Steroids: Patient is been moved to 40 mg by mouth daily if she is discharged later today with suggest 40 mg 1 week, 30 mg 1 week, 20 mg 1 week, and then continue at 10 mg her baseline. 2. Levaquin: We'll continue Levaquin for a total of 7 days at 750 mg as per COPD /CPAP 3. MDIs: Continue previous home regimen #4 discharge: Patient is able to ambulate well at baseline later this afternoon would consider discharge at that time. With follow-up at [place] [facility] in the next 2 weeks with either Heydi Blackwell, Jules Boogie or myself Data Medications: Current Inpatient Medications Medications (Trade) Dose Ordered Sig/Sulema Route Start Time Stop Time Status Last Admin Dose Admin Albuterol/ Ipratropium (Duoneb) 3 ml QIDR INH 05/09/16 20:00 06/08/16 19:59 05/15/16 11:16 3 ML Acetaminophen (Tylenol Tab) 650 mg Q6H PRN PO 05/09/16 18:45 06/08/16 18:44 Oxycodone/ Acetaminophen (Percocet 5-325MG Tab) 1 tab Q4H PRN PO 05/09/16 18:45 05/23/16 18:44 05/09/16 22:29 1 TAB Morphine Sulfate (MoRPHine SULFATE INJ) 3 mg Q3H PRN IV 05/09/16 18:45 05/23/16 18:44 05/13/16 12:40 3 MG Diltiazem HCl (TIAzac CAP) 120 mg DAILY PO 05/10/16 08:00 06/09/16 08:59 05/15/16 08:54 120 MG Escitalopram Oxalate (Lexapro Tab) 20 mg DAILY PO 05/10/16 08:00 06/09/16 08:59 05/15/16 08:53 20 MG Latanoprost (Xalatan Oph Soln) 1 drops HS OPB 05/09/16 21:00 06/08/16 20:59 05/14/16 22:05 1 DROPS Senna/Docusate Sodium (Senokot S Tab) 1 tab BID PO 05/09/16 20:00 06/08/16 19:59 05/15/16 08:53 1 TAB Magnesium Oxide (Mag-Ox Tab) 400 mg DAILY PO 05/10/16 08:00 06/09/16 07:59 05/15/16 08:53 400 MG Enoxaparin Sodium (Lovenox Inj) 40 mg QAM SQ 05/10/16 08:00 06/09/16 07:59 05/15/16 08:54 40 MG Lorazepam (Ativan Tab) 0.5 mg Q6H PRN PO 05/09/16 19:00 06/08/16 18:59 05/14/16 18:17 0.5 MG Ondansetron HCl (Zofran Inj) 4 mg Q6H PRN IV 05/09/16 19:00 06/08/16 18:59 Albuterol/ Ipratropium (Duoneb) 3 ml Q2H PRN INH 05/09/16 20:45 06/08/16 20:44 Insulin Aspart (novoLOG ASPART) SLIDING SCALE G... ACHS SC 05/10/16 11:00 06/09/16 10:59 05/15/16 08:57 1 UNITS Glucose (Glucose 40% Gel) 15-30 GRAMS 15 GRAMS... UD PRN PO 05/10/16 10:30 06/09/16 10:29 Glucose (Glucose Chew Tab) 4-8 Tablets 4 Tabl... UD PRN PO 05/10/16 10:30 06/09/16 10:29 Dextrose (Dextrose 50% 50ML Syringe) 25-50ML OF 50% DW IV FOR... UD PRN IV 05/10/16 10:30 06/09/16 10:29 Glucagon (Glucagon Inj) 1 mg UD PRN SQ 05/10/16 10:30 06/09/16 10:29 Tiotropium [place] (Spiriva Handihaler Inhaler) 1 puff QAM INH 05/11/16 08:00 06/10/16 07:59 05/15/16 08:53 1 PUFF Furosemide (Lasix tab) 20 mg QAM PO 05/12/16 08:00 06/11/16 07:59 05/15/16 08:53 20 MG Levofloxacin (Levaquin Tab) 750 mg DAILY@1600 PO 05/11/16 16:00 05/16/16 15:59 05/14/16 18:12 750 MG Pantoprazole Sodium (Protonix Tab) 40 mg BID PO 05/12/16 20:00 06/11/16 19:59 05/15/16 08:53 40 MG Bisacodyl (Dulcolax Tab) 5 mg Q2D@0800 PO 05/14/16 08:00 06/13/16 07:59 05/14/16 08:29 5 MG Prednisone (PredniSONE TAB) 40 mg DAILY PO 05/16/16 08:00 06/15/16 07:59 Vital Signs: Date Time Temp Pulse Resp B/P Pulse Ox O2 Delivery O2 Flow Rate FiO2 05/15/16 11:16 72 16 98 Nasal Cannula 2.0 05/15/16 09:44 Nasal Cannula 2.0 05/15/16 08:29 36.5 84 16 138/78 97 Nasal Cannula 2.0 05/15/16 07:13 86 16 98 Nasal Cannula 2.0 05/15/16 01:02 97 Nasal Cannula 3.0 05/14/16 23:58 36.9 91 20 136/70 97 Nasal Cannula 4.0 05/14/16 20:15 80 18 98 Nasal Cannula 2.0 05/14/16 16:49 97 Nasal Cannula 3.0 05/14/16 15:20 76 18 98 Nasal Cannula 2.0 05/14/16 15:06 36.9 92 16 134/70 97 Nasal Cannula 2.0 05/14/16 11:40 Nasal Cannula 2.0 Laboratory Results: Last 24 Hours Test 05/14/16 16:15 05/14/16 20:12 05/15/16 05:40 05/15/16 08:01 Bedside Glucose 279 mg/dl 210 mg/dl 178 mg/dl White Blood Count 12.29 K/uL Red Blood Count 3.99 M/uL Hemoglobin 11.4 g/dL Hematocrit 36.5 % Mean Corpuscular Volume 91.5 fL Mean Corpuscular Hemoglobin 28.6 pg Mean Corpuscular Hemoglobin Concent 31.2 g/dl RDW Standard Deviation 47.7 fL RDW Coefficient of Variation 14.2 % Platelet Count 268 K/uL Mean Platelet Volume 9.5 fL Sodium Level 141 mmol/L Potassium Level 4.1 mmol/L Chloride Level 100 mmol/L Carbon Dioxide Level 33 mmol/L Anion Gap 8.0 mmol/L Blood Urea Nitrogen 22 mg/dl Creatinine 0.70 mg/dl Est Creatinine Clear Calc Drug Dose 77.1 ml/min Estimated GFR () 107.6 Estimated GFR (Non- 92.9 BUN/Creatinine Ratio 31.5 Random Glucose 165 mg/dl Calcium Level 8.5 mg/dl
[2016-05-15] MEDS ORDERED: PRT40 PO (11:46)
--- NOTE | 2016-05-15 11:50 | Discharge Summary ---
Discharge Summary Admission Date: May 09, 2016 at 18:51 Discharge Date: May 15, 2016 Discharge Disposition: Home Principal Diagnosis: COPD exacerbation Problems/Secondary Diagnoses: GERD Hypertension Anxiety Hyperglycemia Immunizations: Have You Had Influenza Vaccine: No Influenza Vaccine Date: Feb 06, 2007 History of Tetanus Vaccine?: No Tetanus Immunization Date: Oct 08, 1999 History of Pneumococcal: Unknown Pneumococcal Date: Mar 09, 2007 History of Hepatitis B Vaccine: No Consultations: Pulmonary (Hayley Starks PA-C) Medication Reconciliation New Medications: Prednisone Tab (Prednisone) 10 Mg Tab 10 MG PO UD, #70 TAB take 4 tabs daily for 1 week then take 3 tabs daily for 1 week Then take 2 tabs daily for 1 week Then resume 1 TAB daily Pantoprazole (Pantoprazole Sodium) 40 Mg Tab 40 MG PO BID for 14 Days, TAB Continued Medications: Albuterol (Proair Hfa) Aers 2 PUFFS INH Q4HR PRN, 0 Refills Cholecalciferol (Vitamin D3) 1,000 Unit Tab Unknown Dose PO DAILY Diltiazem Hcl Ext Rel (Tiazac) 120 Mg Capcr 120 MG PO DAILY, CAP Escitalopram Oxalate (Lexapro) 20 Mg Tab 20 MG PO DAILY, TAB Fluticasone Prop/Salmeterol (Advair Diskus 500/50 Mcg *) Aerp 1 PUFF INH BID, 0 Refills Furosemide (Lasix) 20 Mg Tab 20 MG PO DAILY PRN for SWELLING/WEIGHT GAIN, TAB Ipratropium-Albuterol (Duoneb) 3 Ml Nebu 3 ML INH TID, INHA Latanoprost (Xalatan 0.005% Oph Isabel) 0.005 % Isabel 1 DROPS OPB HS, 6 Refills Lorazepam (Ativan) 0.5 Mg Tab 0.5-1 MG PO DAILY PRN for Anxiety, TAB Magnesium Oxide (Mg Supplement (Magnesium) 250 Mg Tab 250 MG PO DAILY Potassium (Potassium) 99 Mg Tab 99 MG PO DAILY Sennosides-Docusate Sodium (Stool Softener) 1 Tab Tab 100 MG PO BID Discontinued Medications: Omeprazole (Prilosec) 20 Mg Capcr 20 MG PO DAILY, CAP Prednisone Tab (Prednisone) 10 Mg Tab 10 MG PO DAILY, TAB Referrals At Discharge Follow up Referrals: Tennis Player Referral - Within a Month with José Lynn, DO Discharge Exam Patient reports her breathing seems to be back to baseline. Denies any significant shortness of breath. Cough is nonproductive. No fever or chills. Denies any chest pain. Still complaining of some mild abdominal discomfort mainly with coughing and moving. She feels like she needs a "binder"for support. Review of Systems: Constitutional: No fever Respiratory: + cough, No shortness of breath Cardiovascular: No chest pain Abdomen: No nausea Physical Exam: General Appearance: + mild distress Neck: no JVD Respiratory/Chest: + pertinent finding (diminished breath sounds at the bases bilaterally. No significant wheezing. Mild tachypnea noted. Saturating at 97% on 2 L.) Cardiovascular: regular rate, rhythm Abdomen / GI: normal bowel sounds, non tender, soft Extremities: no calf tenderness, no pedal edema Neurologic/Psychiatric: no motor/sensory deficits, oriented x 3 (Hayley Starks, [place]) Physical Exam: General Appearance: no apparent distress Eyes: EOMI ENT: hearing grossly normal Neck: trachea midline Respiratory/Chest: no respiratory distress, no accessory muscle use, + decreased breath sounds (Addy Garcia D.O.) Hospital Course Pt is a 60 yo female with a h/o severe end-stage bullous COPD, chronic respiratory failure on home O2, chronic back pain, HTN, tachycardia, LE edema, anxiety, GERD, here with COPD exacerbation. 1) COPD exacerbation - breathing appears to be back down to baseline -She was admitted. Started on Solu-Medrol 60 mg q 6 hr->-slowly tapered to 40 mg IV BID yesterday -Pulm consult -received- IV Levaquin initially, then changed to po Levaquin -completed 7 day course -continue nebs, Spiriva--> will discontinue Spiriva at the time of discharge and initiate the patient's home dose of Advair 500/50 BID -needs sleep study as outpt to see if qualifies for CPAP or BiPAP as per Pulm however caution, use low pressures due to bullae Episode of hemoptysis from epistaxis--> stop blowing fan in room, add humidification to NC 2) Steroid induced hyperglycemia -improving with lowered dose of Solu Medrol - checking sugars, follow sliding scale insulin -HgbA1C ok-will not need insulin upon discharge 3) GERD/Abd fullness/early satiety-most likely abd muscle strain from coughing-- > could be an element of gastritis from steroids -checked KUB-no acute findings -Continue Protonix 40 mg BID for 2 weeks 4) Anxiety - takes lexapro daily 5) Back pain, neck pain - musculoskeletal from accessory muscle use--> much improved -lorazepam prn DVT prophylaxis sub-q lovenox, TEDs, SCDs. Dispo- FULL CODE Plan for discharge to home with home health when ready Total Time Spent: Greater than 30 minutes This includes examination of the patient, discharge planning, medication reconciliation, and communication with other providers. (Hayley Starks PA-C) i personally examined pt and verified all [place] points w A Raudel PAC breathing back to her baseline. takes advair bid every day at home but wasn't on spiriva - will add. also worried about sugars - discussed A1c of 6.2 suggests prediabetic range sugars but nothing like her current readings - anticipate improvement with reducing steroids. pulmonary input noted/ appreciated - long steroid taper vitals noted lungs - cta b/l no r/r/w good effort no accessory muscle use. notably diminished air entry but no wheeze COPD exacerbation - back to baseline. advair/spiriva/long steroid taper, otherwise as above Total Time Spent: Greater than 30 minutes (Addy Garcia D.Tyler) Discharge Instructions Please refer to the electronic Patient Visit Report (Discharge Instructions) for additional information. (Hayley Starks PA-C) Follow-Up Pulmonary in one month PCP within one week (Hayley Starks PA-C) Additional Copies To Jono Rosa M.D.
[2016-05-15 13:38] VITALS: BP 138/78; PULSE 72; TEMP 36.5; O2SAT 98
[2016-05-15] MEDS ORDERED: SPRIN/30 INH (15:00)
[2016-05-15 15:34] VITALS: PULSE 77; O2SAT 97
--- NOTE | 2016-05-16 09:55 | EDITING REQUIRED CODING QUERY ---
CODING QUERY To promote full compliance with coding requirements relating to patient care, provider participation is requested in all cases of hogshead hand uncertainty. Please assist us with the question(s) below: Coding Question(s): There is documentation of Respiratory Failure throughout the record. There is documented chronic respiratory failure and the Pulmonary Progress Note on 05/12/16 documents Acute Respiratory Failure with Hypoxia, however, the Discharge Summary does not document Acute Respiratory Failure. Please clarify below, in your clinical opinion, regarding the Respiratory Failure. ( x ) Acute and Chronic Respiratory Failure with Hypoxia ( ) present on admission ( ) not present on admission ( ) unknown if present on admission ( ) Chronic Respiratory Failure only Physician's Response(s): Thank you Sidra Ferris Principal Diagnosis: "_that condition established after study, to be chiefly responsible for occasioning the admission of the patient to the hospital for care." Co-Existing Principal Diagnosis: "_when two or more diagnoses equally meet the criteria for principal diagnosis as determined by the circumstances of admission, diagnostic work up, and/or therapy provided, and the Alphabetic Index, Tabular List, or another coding guideline does not provide sequencing direction, any one of the diagnoses may be sequenced first." "When the physician has documented what appears to be a current diagnosis in the body of the record, but has not included the diagnosis in the final diagnostic statement, the physician should be asked whether the diagnosis should be added." (Source [facility]oding [facility] 2 QTR90. p3-4)
== END 2016-05-15 16:45 | disposition home or self-care (01) | DRG 190 ==
LOC: ENRESERVDT → ENRESERVTM → C.EDB 16:25 → C.4E 18:51
PROVIDERS: ADMIT Hospitalist; ATTEND Family Medicine
DX: J44.1 Chronic obstructive pulmonary disease with (acute) exacerbation (principal); J96.21 Acute and chronic respiratory failure with hypoxia; R04.2 Hemoptysis; R04.0 Epistaxis; K21.9 Gastro-esophageal reflux disease without esophagitis; R73.9 Hyperglycemia, unspecified; T38.0X5A Adverse effect of glucocorticoids and synthetic analogues, initial encounter; G47.33 Obstructive sleep apnea (adult) (pediatric); M54.9 Dorsalgia, unspecified; F41.9 Anxiety disorder, unspecified; F32.9 Major depressive disorder, single episode, unspecified; I10 Essential (primary) hypertension; I25.10 Atherosclerotic heart disease of native coronary artery without angina pectoris; Z51.81 Encounter for therapeutic drug level monitoring; Z79.899 Other long term (current) drug therapy; Z79.52 Long term (current) use of systemic steroids; Z99.81 Dependence on supplemental oxygen; Z87.891 Personal history of nicotine dependence